=== PATIENT | female | born 1965 | race Caucasian/White ===

== ENCOUNTER 2021-05-28 22:13 | Emergency (ER) | payer MEDICARE, MEDICAID ==
--- NOTE | 2021-05-28 23:24 | EDM.PDOC ---
ED HPI GENERAL MEDICAL PROBLEM - General Chief Complaint: General Stated Complaint: ripped toe nail, left foot Time Seen by Provider: 05/28/21 22:25 Source of Information: Reports: Patient History Limitations: Reports: No Limitations - History of Present Illness INITIAL COMMENTS - FREE TEXT/NARRATIVE: Pt. presents to ER with complaints of bleeding from an avulsed toe nail. Pt. states that she caught the nail from her 2nd digit of L foot on her sock this AM at 10:30. She states that the toenail was avulsed, and actively bled all day. She is on eliquis and plavix. She states that they were trying to control the bleeding with gauze but applied a bandaid to the toe at about 9 PM which seemed to control the bleeding. They were concerned of the length of time the bleeding went on for and called 911. EMS stated that the bleeding was controlled during transport. Onset: Today Onset Date: 05/28/21 Location: Reports: Lower Extremity, Left - Related Data Allergies Allergy/AdvReac Type Severity Reaction Status Date / Time amoxicillin Allergy Unknown Other Verified 05/28/21 22:57 atorvastatin Allergy Unknown Other Verified 05/28/21 22:57 cephalexin [From Keflex] Allergy Unknown Other Verified 05/28/21 22:58 clindamycin Allergy Unknown Other Verified 05/28/21 22:57 duloxetine Allergy Unknown Other Verified 05/28/21 22:57 ibuprofen Allergy Unknown Other Verified 05/28/21 22:57 iodine Allergy Unknown Other Verified 05/28/21 22:57 metformin Allergy Unknown Other Verified 05/28/21 22:57 azithromycin [From Zithromax] Allergy Hives Verified 05/28/21 22:57 Sulfa (Sulfonamide Allergy Shortness Verified 05/28/21 22:57 Antibiotics) of Breath Home Meds: Home Meds Gabapentin [Neurontin] 800 mg PO TID 12/27/13 [History] Insulin Aspart [NovoLOG] units SQ BID 12/27/13 [History] Insulin Glarg,Human.Rec.Analog [LantUS] 30 unit SUBCUT DAILY 12/27/13 [History] Lisinopril 20 mg PO DAILY 12/27/13 [History] Ondansetron [Zofran ODT] 4 mg PO ONCALL PRN 12/27/13 [History] Simvastatin [Zocor] 10 mg PO BEDTIME 12/27/13 [History] Albuterol Sulfate [Albuterol Sulfate HFA] 8.5 gm IH TID #1 hfa.aer.ad 02/01/14 [Rx] ED ROS GENERAL - Review of Systems Review Of Systems: Comprehensive ROS is negative, except as noted in HPI. ED EXAM, GENERAL - Physical Exam Exam: See Below Exam Limited By: No Limitations General Appearance: Alert, WD/WN, No Apparent Distress Extremities: Normal Inspection, Normal Range of Motion, Non-Tender, No Pedal Edema, Normal Capillary Refill, Other (Avulsed nail 2nd digit L foot. Bleeding controlled with bandaid. Scant amount of oozing of blood noted from area of cuticle. Pt. noted to have a ulcer to lateral aspect of the L ankle. No erythema, edema or discharge noted.) ED GENERAL MEDICAL PROCEDURES - Additional/Other Procedure(s) Other (Free Text) Procedure(s): Small area of exposed oozing nail matrix was cauterized with silver nitrate. Pt. tolerated this well. New bandaid was applied to digit. Wound on lateral aspect of the ankle was inspected and redressed with large bandaid. No active infectious process noted from either area. Course - Vital Signs Last Recorded V/S: Last Vital Signs Temp 36.6 C 05/28/21 22:16 Pulse 66 05/28/21 22:16 Resp 18 05/28/21 22:16 BP 137/62 05/28/21 22:16 Pulse Ox 100 05/28/21 22:16 Departure - Departure Time of Disposition: 11:30 Disposition: DC/Tfer to [facility] Clinical Impression: Nail avulsion of toe - Discharge Information Instructions: Nail Avulsion Referrals: Micaela Mensah MD [Primary Care Provider] - Forms: ED Department Discharge Additional Instructions: Silver nitrate was applied to the bleeding area. Change bandaid once daily. Return to ER/follow-up in clinic if you notice any redness, swelling, or discharge. Sepsis Event Note (ED) - Evaluation Sepsis Screening Result: No Definite Risk - Focused Exam Vital Signs: Vital Signs Temp Pulse Resp BP Pulse Ox 05/28/21 22:16 36.6 C 66 18 137/62 100 - Problem List Review Problem List Initiated/Reviewed/Updated: Yes - Assessment/Plan Plan: Home to rest. Change dressing on both lesions daily. If the patient continues to have bleeding from the toe, they can coban the 1st and 2nd digit for a pressure dressing. Return if they notice redness, swelling, or discharge from the area.
== END 2021-05-28 23:50 ==
LOC: LL.ED 22:13
DX: S91.215A Laceration without foreign body of left lesser toe(s) with damage to nail, initial encounter (principal); Z88.0 Allergy status to penicillin; Z88.1 Allergy status to other antibiotic agents; Z88.8 Allergy status to other drugs, medicaments and biological substances; Z79.4 Long term (current) use of insulin; Z79.899 Other long term (current) drug therapy; Z79.02 Long term (current) use of antithrombotics/antiplatelets; Z79.01 Long term (current) use of anticoagulants; W23.0XXA Caught, crushed, jammed, or pinched between moving objects, initial encounter
CPT/HCPCS: 12001; 99283-25

== ENCOUNTER 2021-06-30 12:51 | Inpatient (IN) | payer MEDICARE, MEDICAID ==
[2021-06-30] MEDS ORDERED: Sodium Chloride 0.9% 10 ML Syringe FLUSH PRN (12:52)
[2021-06-30] MEDS: Sodium Chloride 0.9% 1,000 ML IV SCH ×2 (13:00→15:00)
--- NOTE | 2021-06-30 13:08 | EDM.PDOC ---
ED HPI GENERAL MEDICAL PROBLEM - General Chief Complaint: General Stated Complaint: unresponsive, elevated blood sugars Time Seen by Provider: 06/30/21 12:52 Source of Information: Reports: Patient, EMS, EMS Notes Reviewed, Halfway Records, Old Records History Limitations: Reports: Other (poor historian) - History of Present Illness INITIAL COMMENTS - FREE TEXT/NARRATIVE: Patient presents to the ER via EMS for altered mental status and high blood sugars. Patient was just discharged from [place] to [facility] for assisted cares yesterday. Apparently she is unable to care for herself and has a chronic elevated blood sugar problem. She did get insulin today, but meter readings were " high". She admitted to staff that she smoked marijuana laced with cocaine on 06/28. She is not on oxygen but has CHF, COPD. patient is alert and answering questions to voice stimulation. Moving all extremities. Has sores on her right stump and left foot chronically. 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 Denies any pain - Related Data Allergies Allergy/AdvReac Type Severity Reaction Status Date / Time amoxicillin Allergy Unknown Other Verified 05/28/21 22:57 atorvastatin Allergy Unknown Other Verified 05/28/21 22:57 cephalexin [From Keflex] Allergy Unknown Other Verified 05/28/21 22:58 clindamycin Allergy Unknown Other Verified 05/28/21 22:57 duloxetine Allergy Unknown Other Verified 05/28/21 22:57 ibuprofen Allergy Unknown Other Verified 05/28/21 22:57 iodine Allergy Unknown Other Verified 05/28/21 22:57 metformin Allergy Unknown Other Verified 05/28/21 22:57 azithromycin [From Zithromax] Allergy Hives Verified 05/28/21 22:57 Sulfa (Sulfonamide Allergy Shortness Verified 05/28/21 22:57 Antibiotics) of Breath Home Meds: Home Meds Gabapentin [Neurontin] 800 mg PO TID 12/27/13 [History] Insulin Aspart [NovoLOG] units SQ BID 12/27/13 [History] Insulin Glarg,Human.Rec.Analog [LantUS] 30 unit SUBCUT DAILY 12/27/13 [History] Lisinopril 20 mg PO DAILY 12/27/13 [History] Ondansetron [Zofran ODT] 4 mg PO ONCALL PRN 12/27/13 [History] Simvastatin [Zocor] 10 mg PO BEDTIME 12/27/13 [History] Albuterol Sulfate [Albuterol Sulfate HFA] 8.5 gm IH TID #1 hfa.aer.ad 02/01/14 [Rx] Past Medical History HEENT History: Reports: Allergic Rhinitis, Glaucoma, Other (See Below) Other HEENT History: macular edema R eye Cardiovascular History: Reports: Heart Failure, High Cholesterol, Hypertension, PVD Respiratory History: Reports: COPD Gastrointestinal History: Reports: GERD Genitourinary History: Reports: Chronic Renal Insuffiency, Other (See Below) Other Genitourinary History: stage 3 Musculoskeletal History: Reports: Other (See Below) Psychiatric History: Reports: Anxiety, Depression Endocrine/Metabolic History: Reports: Diabetes, Type II, Hypothyroidism - Past Surgical History Musculoskeletal Surgical History: Reports: Amputation Other Musculoskeletal Surgeries/Procedures:: R leg below knee amputation Social & Family History - Tobacco Use Tobacco Use Status *Q: Current Every Day Tobacco User - Recreational Drug Use Recreational Drug Use: Yes Drug Use in Last 12 Months: Yes Recreational Drug Type: Reports: Cocaine, Marijuana/Hashish ED ROS GENERAL - Review of Systems Review Of Systems: See Below Constitutional: Reports: Weakness, Fatigue HEENT: Reports: No Symptoms. Denies: Dental Pain, Sinus Problem, Throat Pain Respiratory: Reports: Shortness of Breath (chronically) Cardiovascular: Reports: Dyspnea on Exertion (chronically with minimal activity, non ambulatory), Edema (left leg chronically) GI/Abdominal: Reports: No Symptoms Skin: Reports: Wound (chronically on right stump and left foot) Neurological: Reports: Paresthesia, Pre-Existing Deficit (diabetic neuropathy) ED EXAM, GENERAL - Physical Exam Exam: See Below Exam Limited By: Other (cooperative but somnolent, responds and opens eyes to commands, answers questions) General Appearance: Other (somnolent but arousable to voice) Eye Exam: Right Eye: PERRL (note left is blind), Bilateral Eye: Normal Inspection Nose: Normal Inspection Throat/Mouth: Normal Inspection, Normal Lips, Normal Voice Head: Atraumatic Neck: Normal Inspection, Supple Respiratory/Chest: Normal Breath Sounds, Decreased Breath Sounds (bases), Crackles Cardiovascular: Normal Peripheral Pulses, Regular Rate, Rhythm GI/Abdominal: Normal Bowel Sounds, Soft Extremities: Other (rightleg stump with dressing wound at end. left leg with dermis stasis changes, brawny edema, wound dressed. ) Psychiatric: Depressed Mood #1 Interpretation EKG Date: 06/30/21 Time: 13:05 Rhythm: NSR Rate (Beats/Min): 59 [place]: Normal ST-T: Other (non specific changes, no STEMI) QT: Prolonged Course - Vital Signs Last Recorded V/S: Last Vital Signs Temp 36.0 C L 06/30/21 12:51 Pulse 61 06/30/21 12:51 Resp 16 06/30/21 12:51 BP 113/51 L 06/30/21 12:51 Pulse Ox 92 L 06/30/21 12:51 - Orders/Labs/Meds Orders: Active Orders 24 hr Category Date Time Status Admission Status [Patient Status] [ADT] Routine ADT 06/30/21 13:53 Active Blood Glucose Check, Bedside [RC] WITHMEALSANDBED Care 06/30/21 13:25 Active EKG Documentation Completion [RC] ASDIRECTED Care 06/30/21 12:54 Active Oxygen Therapy [RC] ASDIRECTED Care 06/30/21 13:27 Active Peripheral IV Care [RC] . DIRECTED Care 06/30/21 12:53 Active Chest 1V Frontal [CR] Stat Exams 06/30/21 12:56 Taken CULTURE URINE [RM] Stat Lab 06/30/21 14:20 Received Dextrose 50% in Water Med 06/30/21 13:19 Active 50 ml IVPUSH ASDIRECTED PRN Glucagon,Human Recombinant [GlucaGen] Med 06/30/21 13:19 Active 1 mg IM ASDIRECTED PRN Insulin Regular, Human [HumuLIN R] 100 unit Med 06/30/21 14:00 Active Sodium Chloride 0.9% [Normal Saline] 99 ml IV TITRATE Sodium Chloride 0.9% [Normal Saline] 1,000 ml Med 06/30/21 13:00 Active IV ASDIRECTED Sodium Chloride 0.9% [Normal Saline] 1,000 ml Med 06/30/21 14:15 Active IV ASDIRECTED Sodium Chloride 0.9% [Normal Saline] 1,000 ml Med 06/30/21 15:00 Ordered IV ASDIRECTED Sodium Chloride 0.9% [Saline Flush] Med 06/30/21 12:52 Active 10 ml FLUSH ASDIRECTED PRN cefTRIAXone [Rocephin] Med 06/30/21 15:00 Ordered 1 gm IVPUSH Q24H Peripheral IV Insertion Adult [OM.PC] Routine Oth 06/30/21 12:52 Ordered Medication Orders Ceftriaxone Sodium (Ceftriaxone 2 Gm Vial) 1 gm IVPUSH Q24H DERICK Dextrose/Water (50% Dextrose In Water 50 Ml Syringe) 50 ml IVPUSH ASDIRECTED PRN PRN Reason: Hypoglycemia Glucagon (Glucagon,Human Recombinant 1 Mg Vial) 1 mg IM ASDIRECTED PRN PRN Reason: Hypoglycemia Sodium Chloride (Normal Saline) 1,000 mls @ 999 mls/hr IV ASDIRECTED DERICK Last Admin: 06/30/21 13:00 Dose: 999 mls/hr Documented by: ELISABETH Insulin Human Regular 100 unit (/ Sodium Chloride) 100 mls @ 10.18 mls/hr IV TITRATE DERICK; Protocol Last Admin: 06/30/21 14:31 Dose: 0.1 units/kg/hr, 10.18 mls/hr Documented by: ELISABETH Cosigned by: COXTAM Sodium Chloride (Normal Saline) 1,000 mls @ 999 mls/hr IV ASDIRECTED DERICK Sodium Chloride (Normal Saline) 1,000 mls @ 100 mls/hr IV ASDIRECTED DERICK Sodium Chloride (Sodium Chloride 0.9% 10 Ml Syringe) 10 ml FLUSH ASDIRECTED PRN PRN Reason: Keep Vein Open Labs: Laboratory Tests 06/30/21 06/30/21 06/30/21 Range/Units 12:55 12:55 12:55 WBC 10.7 H (4.0-10.2) K/uL RBC 4.00 (3.77-5.09) M/uL Hgb 12.4 (11.7-15.5) g/dL Hct 38.9 (34.0-46.0) % MCV 97.3 (84.0-98.0) fL MCH 31.0 (28.2-33.3) pg MCHC 31.9 (31.7-36.0) g/dL RDW 13.8 (11.2-14.1) % Plt Count 209 (150-350) K/uL Neut % (Auto) 79.3 (45.0-80.0) % Lymph % (Auto) 10.0 (10.0-50.0) % [place] % (Auto) 9.6 (2.0-14.0) % Eos % (Auto) 0.8 (0.0-5.0) % Baso % (Auto) 0.3 (0.0-2.0) % Neut # (Auto) 8.46 H (1.40-7.00) K/uL Lymph # (Auto) 1.07 (0.50-3.50) K/uL [place] # (Auto) 1.02 H (0.00-1.00) K/uL Eos # (Auto) 0.09 (0.00-0.50) K/uL Baso # (Auto) 0.03 (0.00-0.20) K/uL D-Dimer, Quantitative (0-400) ng/mL ABG pH (7.35-7.45) ABG pCO2 (35-45) mmHG ABG pO2 (80-105) mmHG ABG HCO3 (22-26) mmol/L ABG Total CO2 (23-27) mmol/L ABG O2 Saturation (95-98) % ABG Base Excess (-2-3) mmol/L O2 Delivery Device Oxygen Flow Rate L/min Sodium 118 L* (136-145) mmol/L Potassium 5.1 (3.5-5.1) mmol/L Chloride 79 L* (98-107) mmol/L Carbon Dioxide 30.9 (21.0-32.0) mmol/L Anion Gap 13.2 (7-15) meq/L BUN 63 H (7-18) mg/dL Creatinine 2.55 H (0.51-1.17) mg/dL Est Cr Clr Drug Dosing TNP Estimated GFR (MDRD) 20 mL/min Glucose 1046 H* (70-99) mg/dL Lactic Acid (0.4-2.0) mmol/L Calcium 8.9 (8.5-10.1) mg/dL Magnesium 3.0 H (1.8-2.4) mg/dL Total Bilirubin 0.5 (0.2-1.0) mg/dL AST 11 L (15-37) U/L ALT 13 (12-78) U/L Alkaline Phosphatase 231 H (46-116) IU/L Ammonia (11-32) umol/L Troponin I High Sens 14 (<=51) ng/L NT-Pro-B Natriuret Pep 5368 H (0-125) pg/mL Total Protein 7.6 (6.4-8.2) g/dL Albumin 3.1 L (3.4-5.0) g/dL Specimen Type Urine Color Urine Appearance Urine pH (5.0-9.0) Ur Specific [place] (1.005-1.030) Urine Protein (NEGATIVE) mg/dL Urine Glucose (UA) (NEGATIVE) mg/dL Urine Ketones (NEGATIVE) mg/dL Urine Occult Blood (NEGATIVE) Urine Nitrite (NEGATIVE) Urine Bilirubin (NEGATIVE) Urine Urobilinogen (0.2-1.0) E.U./dL Ur Leukocyte Esterase (NEGATIVE) Urine RBC /HPF Urine WBC /HPF Ur Epithelial Cells /LPF Urine Bacteria (NONE TO FEW) /HPF Urine Mucus (NEGATIVE) /LPF Urine Yeast (NEGATIVE) /HPF Urine Opiates Screen (NEGATIVE) Ur Buprenorphine Scrn (NEGATIVE) Ur Oxycodone Screen (NEGATIVE) Ur EDDP (Meth Metab) (NEGATIVE) Ur Barbiturates Screen (NEGATIVE) Ur Tricyclics Screen (NEGATIVE) Ur Amphetamine Screen (NEGATIVE) U Methamphetamines Scrn (NEGATIVE) Urine MDMA Screen (NEGATIVE) U Benzodiazepines Scrn (NEGATIVE) U Cocaine Metab Screen (NEGATIVE) U Marijuana (THC) Screen (NEGATIVE) Ketones Negative 06/30/21 06/30/21 06/30/21 Range/Units 12:55 12:55 12:55 WBC (4.0-10.2) K/uL RBC (3.77-5.09) M/uL Hgb (11.7-15.5) g/dL Hct (34.0-46.0) % MCV (84.0-98.0) fL MCH (28.2-33.3) pg MCHC (31.7-36.0) g/dL RDW (11.2-14.1) % Plt Count (150-350) K/uL Neut % (Auto) (45.0-80.0) % Lymph % (Auto) (10.0-50.0) % [place] % (Auto) (2.0-14.0) % Eos % (Auto) (0.0-5.0) % Baso % (Auto) (0.0-2.0) % Neut # (Auto) (1.40-7.00) K/uL Lymph # (Auto) (0.50-3.50) K/uL [place] # (Auto) (0.00-1.00) K/uL Eos # (Auto) (0.00-0.50) K/uL Baso # (Auto) (0.00-0.20) K/uL D-Dimer, Quantitative 387 (0-400) ng/mL ABG pH (7.35-7.45) ABG pCO2 (35-45) mmHG ABG pO2 (80-105) mmHG ABG HCO3 (22-26) mmol/L ABG Total CO2 (23-27) mmol/L ABG O2 Saturation (95-98) % ABG Base Excess (-2-3) mmol/L O2 Delivery Device Oxygen Flow Rate L/min Sodium (136-145) mmol/L Potassium (3.5-5.1) mmol/L Chloride (98-107) mmol/L Carbon Dioxide (21.0-32.0) mmol/L Anion Gap (7-15) meq/L BUN (7-18) mg/dL Creatinine (0.51-1.17) mg/dL Est Cr Clr Drug Dosing Estimated GFR (MDRD) mL/min Glucose (70-99) mg/dL Lactic Acid 2.6 H (0.4-2.0) mmol/L Calcium (8.5-10.1) mg/dL Magnesium (1.8-2.4) mg/dL Total Bilirubin (0.2-1.0) mg/dL AST (15-37) U/L ALT (12-78) U/L Alkaline Phosphatase (46-116) IU/L Ammonia 13 (11-32) umol/L Troponin I High Sens (<=51) ng/L NT-Pro-B Natriuret Pep (0-125) pg/mL Total Protein (6.4-8.2) g/dL Albumin (3.4-5.0) g/dL Specimen Type Urine Color Urine Appearance Urine pH (5.0-9.0) Ur Specific [place] (1.005-1.030) Urine Protein (NEGATIVE) mg/dL Urine Glucose (UA) (NEGATIVE) mg/dL Urine Ketones (NEGATIVE) mg/dL Urine Occult Blood (NEGATIVE) Urine Nitrite (NEGATIVE) Urine Bilirubin (NEGATIVE) Urine Urobilinogen (0.2-1.0) E.U./dL Ur Leukocyte Esterase (NEGATIVE) Urine RBC /HPF Urine WBC /HPF Ur Epithelial Cells /LPF Urine Bacteria (NONE TO FEW) /HPF Urine Mucus (NEGATIVE) /LPF Urine Yeast (NEGATIVE) /HPF Urine Opiates Screen (NEGATIVE) Ur Buprenorphine Scrn (NEGATIVE) Ur Oxycodone Screen (NEGATIVE) Ur EDDP (Meth Metab) (NEGATIVE) Ur Barbiturates Screen (NEGATIVE) Ur Tricyclics Screen (NEGATIVE) Ur Amphetamine Screen (NEGATIVE) U Methamphetamines Scrn (NEGATIVE) Urine MDMA Screen (NEGATIVE) U Benzodiazepines Scrn (NEGATIVE) U Cocaine Metab Screen (NEGATIVE) U Marijuana (THC) Screen (NEGATIVE) Ketones 06/30/21 06/30/21 06/30/21 Range/Units 13:19 14:20 14:20 WBC (4.0-10.2) K/uL RBC (3.77-5.09) M/uL Hgb (11.7-15.5) g/dL Hct (34.0-46.0) % MCV (84.0-98.0) fL MCH (28.2-33.3) pg MCHC (31.7-36.0) g/dL RDW (11.2-14.1) % Plt Count (150-350) K/uL Neut % (Auto) (45.0-80.0) % Lymph % (Auto) (10.0-50.0) % [place] % (Auto) (2.0-14.0) % Eos % (Auto) (0.0-5.0) % Baso % (Auto) (0.0-2.0) % Neut # (Auto) (1.40-7.00) K/uL Lymph # (Auto) (0.50-3.50) K/uL [place] # (Auto) (0.00-1.00) K/uL Eos # (Auto) (0.00-0.50) K/uL Baso # (Auto) (0.00-0.20) K/uL D-Dimer, Quantitative (0-400) ng/mL ABG pH 7.40 (7.35-7.45) ABG pCO2 49 H (35-45) mmHG ABG pO2 68 L* (80-105) mmHG ABG HCO3 30.4 H (22-26) mmol/L ABG Total CO2 31 H (23-27) mmol/L ABG O2 Saturation 93 L (95-98) % ABG Base Excess 5 H (-2-3) mmol/L O2 Delivery Device Room air Oxygen Flow Rate 2 L/min Sodium (136-145) mmol/L Potassium (3.5-5.1) mmol/L Chloride (98-107) mmol/L Carbon Dioxide (21.0-32.0) mmol/L Anion Gap (7-15) meq/L BUN (7-18) mg/dL Creatinine (0.51-1.17) mg/dL Est Cr Clr Drug Dosing Estimated GFR (MDRD) mL/min Glucose (70-99) mg/dL Lactic Acid (0.4-2.0) mmol/L Calcium (8.5-10.1) mg/dL Magnesium (1.8-2.4) mg/dL Total Bilirubin (0.2-1.0) mg/dL AST (15-37) U/L ALT (12-78) U/L Alkaline Phosphatase (46-116) IU/L Ammonia (11-32) umol/L Troponin I High Sens (<=51) ng/L NT-Pro-B Natriuret Pep (0-125) pg/mL Total Protein (6.4-8.2) g/dL Albumin (3.4-5.0) g/dL Specimen Type [place] Urine Color Yellow Urine Appearance Cloudy Urine pH 5.5 (5.0-9.0) Ur Specific [place] 1.010 (1.005-1.030) Urine Protein Negative (NEGATIVE) mg/dL Urine Glucose (UA) 500 H (NEGATIVE) mg/dL Urine Ketones Negative (NEGATIVE) mg/dL Urine Occult Blood Moderate H (NEGATIVE) Urine Nitrite Negative (NEGATIVE) Urine Bilirubin Negative (NEGATIVE) Urine Urobilinogen 0.2 (0.2-1.0) E.U./dL Ur Leukocyte Esterase Large H (NEGATIVE) Urine RBC 0-5 /HPF Urine WBC >100 H /HPF Ur Epithelial Cells Moderate H /LPF Urine Bacteria Few (NONE TO FEW) /HPF Urine Mucus Few H (NEGATIVE) /LPF Urine Yeast Many H (NEGATIVE) /HPF Urine Opiates Screen Negative (NEGATIVE) Ur Buprenorphine Scrn Negative (NEGATIVE) Ur Oxycodone Screen Negative (NEGATIVE) Ur EDDP (Meth Metab) Negative (NEGATIVE) Ur Barbiturates Screen Negative (NEGATIVE) Ur Tricyclics Screen Negative (NEGATIVE) Ur Amphetamine Screen Negative (NEGATIVE) U Methamphetamines Scrn Negative (NEGATIVE) Urine MDMA Screen Negative (NEGATIVE) U Benzodiazepines Scrn Negative (NEGATIVE) U Cocaine Metab Screen Negative (NEGATIVE) U Marijuana (THC) Screen Negative (NEGATIVE) Ketones Meds: Medications Generic Name Dose Route Start Last Admin Trade Name Freq PRN Reason Stop Dose Admin Ceftriaxone Sodium 1 gm 06/30/21 15:00 Ceftriaxone 2 Gm Vial IVPUSH Q24H DERICK Dextrose/Water 50 ml 06/30/21 13:19 50% Dextrose In Water 50 Ml Syringe IVPUSH ASDIRECTED PRN Hypoglycemia Glucagon 1 mg 06/30/21 13:19 Glucagon,Human Recombinant 1 Mg Vial IM ASDIRECTED PRN Hypoglycemia Sodium Chloride 1,000 mls @ 999 mls/hr 06/30/21 13:00 06/30/21 13:00 Normal Saline IV 999 mls/hr ASDIRECTED DERICK Administration Insulin Human Regular 100 unit 100 mls @ 10.18 mls/hr 06/30/21 14:00 06/30/21 14:31 / Sodium Chloride IV 0.1 units/kg/hr TITRATE DERICK 10.18 mls/hr Administration Protocol 0.1 UNITS/KG/HR Sodium Chloride 1,000 mls @ 999 mls/hr 06/30/21 14:15 Normal Saline IV ASDIRECTED DERICK Sodium Chloride 1,000 mls @ 100 mls/hr 06/30/21 15:00 Normal Saline IV ASDIRECTED DERICK Sodium Chloride 10 ml 06/30/21 12:52 Sodium Chloride 0.9% 10 Ml Syringe FLUSH ASDIRECTED PRN Keep Vein Open Discontinued Medications Generic Name Dose Route Start Last Admin Trade Name Freq PRN Reason Stop Dose Admin Insulin Human Regular 10 unit 06/30/21 13:19 06/30/21 13:41 Insulin Regular, Human 100 Units/Ml 3 Ml Vial IV 06/30/21 13:20 10 units ONETIME ONE Administration Naloxone HCl 2 mg 06/30/21 13:30 06/30/21 13:35 Naloxone 2 Mg/2 Ml Syringe IVPUSH 06/30/21 13:31 2 mg ONETIME ONE Administration - Radiology Interpretation Free Text/Narrative:: one view chest x-ray without acute findings, preliminary read. - Re-Assessments/Exams Free Text/Narrative Re-Assessment/Exam: 06/30/[address] an IV, get abg. give fluids until potassium known. 13:35 potassium normal, sodium low, awaiting glucose reading. Will give 10 units of insulin. Patient known for drug use, sleeping, appears to have sleep apnea. oxygen via mouth at 5 lpm. ABG with low Po2. will give 2 mg of Narcan Normal ph. 06/30/21 14:05 Patient was much more responsive after the narcan. has been taking oxycodone. Has significant hyperglycemia, normal Ph, normal corrected sodium of 133. normal mag and potassium. insulin drip ordered. Does have significant heart failure with elevated BNP but can maintain room air sats of 100 % when awake. desaturates when asleep. admission for monitoring of electrolytes, decreasing glucose and monitoring of her respiratory status. 06/30/21 14:17 reviewed [place] Chart Admitted 06/20/2021 for [facility], blood glucose 900, creatinine 2.46. Discharged to [facility] on 06/22. creatinine 1.5 an glucose 230. Treated with rocpehin for uti, was E coli positive with resistance to ampicillin. cipro and levoquin. Started on 10 days of vancomycin 125 mg Po bid due to history of c diff. should have two days left of this. Admitted to [facility] [place] yesterday. History of noncompliance with insulin and drug abuse. 06/30/21 14:58 patient does have a UTI, poor hygiene and uncontrolled glucose contribute to this. Patient has taken rocephin in the past ( mckayla) and tolerated. Will give one gram rocephin IV. Departure - Departure Time of Disposition: 13:52 Disposition: Admitted As Inpatient 68 Clinical Impression: Hyperglycemia, Hyponatremia, Hypoxia, Hyperosmolar hyperglycemic state (HHS), UTI, Urinary tract infectious disease, Noncompliance - Discharge Information Referrals: PCP,Unknown [Ordering Only Provider] - Forms: ED Department Discharge Additional Instructions: use ER note as admission H & P Sepsis Event Note (ED) - Focused Exam Vital Signs: Vital Signs Temp Pulse Resp BP Pulse Ox 06/30/21 12:51 36.0 C L 61 16 113/51 L 92 L - My Orders Last 24 Hours: My Active Orders 06/30/21 12:52 Sodium Chloride 0.9% [Saline Flush] 10 ml FLUSH ASDIRECTED PRN Peripheral IV Insertion Adult [OM.PC] Routine 06/30/21 12:53 Peripheral IV Care [RC] . DIRECTED 06/30/21 12:54 EKG Documentation Completion [RC] ASDIRECTED 06/30/21 12:56 Chest 1V Frontal [CR] Stat 06/30/21 13:00 Sodium Chloride 0.9% [Normal Saline] 1,000 ml IV ASDIRECTED 06/30/21 13:19 Dextrose 50% in Water 50 ml IVPUSH ASDIRECTED PRN Glucagon,Human Recombinant [GlucaGen] 1 mg IM ASDIRECTED PRN 06/30/21 13:25 Blood Glucose Check, Bedside [RC] WITHMEALSANDBED 06/30/21 13:27 Oxygen Therapy [RC] ASDIRECTED 06/30/21 13:53 Admission Status [Patient Status] [ADT] Routine 06/30/21 14:00 Insulin Regular, Human [HumuLIN R] 100 unit Sodium Chloride 0.9% [Normal Saline] 99 ml IV TITRATE 06/30/21 14:15 Sodium Chloride 0.9% [Normal Saline] 1,000 ml IV ASDIRECTED 06/30/21 14:20 CULTURE URINE [RM] Stat 06/30/21 15:00 Sodium Chloride 0.9% [Normal Saline] 1,000 ml IV ASDIRECTED cefTRIAXone [Rocephin] 1 gm IVPUSH Q24H - Assessment/Plan Last 24 Hours: My Active Orders 06/30/21 12:52 Sodium Chloride 0.9% [Saline Flush] 10 ml FLUSH ASDIRECTED PRN Peripheral IV Insertion Adult [OM.PC] Routine 06/30/21 12:53 Peripheral IV Care [RC] . DIRECTED 06/30/21 12:54 EKG Documentation Completion [RC] ASDIRECTED 06/30/21 12:56 Chest 1V Frontal [CR] Stat 06/30/21 13:00 Sodium Chloride 0.9% [Normal Saline] 1,000 ml IV ASDIRECTED 06/30/21 13:19 Dextrose 50% in Water 50 ml IVPUSH ASDIRECTED PRN Glucagon,Human Recombinant [GlucaGen] 1 mg IM ASDIRECTED PRN 06/30/21 13:25 Blood Glucose Check, Bedside [RC] WITHMEALSANDBED 06/30/21 13:27 Oxygen Therapy [RC] ASDIRECTED 06/30/21 13:53 Admission Status [Patient Status] [ADT] Routine 06/30/21 14:00 Insulin Regular, Human [HumuLIN R] 100 unit Sodium Chloride 0.9% [Normal Saline] 99 ml IV TITRATE 06/30/21 14:15 Sodium Chloride 0.9% [Normal Saline] 1,000 ml IV ASDIRECTED 06/30/21 14:20 CULTURE URINE [RM] Stat 06/30/21 15:00 Sodium Chloride 0.9% [Normal Saline] 1,000 ml IV ASDIRECTED cefTRIAXone [Rocephin] 1 gm IVPUSH Q24H
[2021-06-30] MEDS ORDERED: Insulin Regular, Human 100 Units/ML 3 ML Vial IV ONE (13:19)
[2021-06-30] MEDS ORDERED: 50% Dextrose in Water 50 ML Syringe IVPUSH PRN (13:19)
[2021-06-30] MEDS ORDERED: Glucagon,Human Recombinant 1 MG Vial IM PRN (13:19)
[2021-06-30 13:21] LABS: O2 DELIVERY DEVICE ROOM AIR; PCO2 ARTERIAL 49 mmHG (35-45)
[2021-06-30 13:22] LABS: BASE EXCESS ARTERIAL 5 mmol/L (-2-3); BICARBONATE,ARTERIAL 30.4 mmol/L (22-26); O2 SATURATION ARTERIAL 93 % (95-98); PO2 ARTERIAL 68 mmHG (80-105)
[2021-06-30 13:26] LABS: O2 FLOW RATE 2 L/min
[2021-06-30] MEDS ORDERED: Naloxone 2 MG/2 ML Syringe IVPUSH ONE (13:30)
[2021-06-30 13:41] LABS: ANION GAP 13.2 meq/L (7-15); CHLORIDE,CL 79 mmol/L (98-107); SODIUM,NA 118 mmol/L (136-145)
[2021-06-30] MEDS ORDERED: Sodium Chloride 0.9% 1,000 ML IV SCH ×3 (14:15→15:15)
[2021-06-30 14:40] LABS: BARBITURATE SCREEN,URINE NEGATIVE (NEGATIVE); BENZODIAZEPINES SCREEN,URINE NEGATIVE (NEGATIVE); EDDP,URINE SCREEN NEGATIVE (NEGATIVE); TCA SCREEN,URINE NEGATIVE (NEGATIVE); THC SCREEN,URINE 50 NG/ML NEGATIVE (NEGATIVE)
[2021-06-30 14:42] LABS: BUPRENORPHINE SCREEN,URINE NEGATIVE (NEGATIVE)
[2021-06-30] MEDS ORDERED: Ondansetron 4 MG/2 ML SDV IVPUSH PRN (15:00)
[2021-06-30] MEDS ORDERED: Acetaminophen/HYDROcodone 325-5 MG Tab PO PRN (15:00)
[2021-06-30] MEDS ORDERED: cefTRIAXone 2 GM Vial IVPUSH SCH (15:00)
[2021-06-30] MEDS ORDERED: Albuterol 0.083% 2.5 MG/3 ML Neb Soln NEB PRN (15:00)
[2021-06-30] MEDS ORDERED: Insulin Lispro 100 Units/ML 3 ML Vial SUBCUT SCH (15:00)
[2021-06-30] MEDS ORDERED: Bisacodyl 5 MG Tab PO PRN (15:00)
[2021-06-30] MEDS ORDERED: Acetaminophen 325 MG Tab PO PRN (15:00)
[2021-06-30] MEDS ORDERED: Ondansetron 4 MG Tab.DIS PO PRN (15:00)
[2021-06-30 17:35] LABS: ANION GAP 12.5 meq/L (7-15); CHLORIDE,CL 92 mmol/L (98-107); SODIUM,NA 131 mmol/L (136-145)
[2021-06-30] MEDS: Gabapentin 400 MG Cap PO SCH (19:55)
[2021-06-30] MEDS: atorvaSTATin 40 MG Tab PO SCH (19:56)
[2021-06-30] MEDS: Omeprazole 20 MG Cap.CR PO SCH (19:56)
[2021-06-30] MEDS: ClonazePAM 0.5 MG Tab PO SCH (19:56)
[2021-06-30] MEDS: QUEtiapine 25 MG Tab PO SCH (19:57)
[2021-06-30] MEDS: Insulin Lispro 100 Units/ML 3 ML Vial SUBCUT SCH (19:58)
[2021-06-30] MEDS: Carvedilol 6.25 MG Tab PO SCH (20:08)
[2021-06-30] MEDS: Timolol Maleate 0.5% Ophth Soln 5 ML Bottle EYELF SCH (20:09)
[2021-06-30] MEDS: Latanoprost 0.005% Ophth Soln 2.5 ML Bottle EYELF SCH (20:12)
[2021-07-01 05:45] LABS: ANION GAP 11.4 meq/L (7-15)
[2021-07-01] MEDS: Spironolactone 25 MG Tab PO SCH (07:35)
[2021-07-01] MEDS: QUEtiapine 25 MG Tab PO SCH ×2 (07:35→17:03)
[2021-07-01] MEDS: Bumetanide 1 MG Tab PO SCH ×2 (07:36→11:15)
[2021-07-01] MEDS: amLODIPine 5 MG Tab PO SCH (07:37)
[2021-07-01] MEDS: Isosorbide Mononitrate 30 MG Tab.ER PO SCH (07:37)
[2021-07-01] MEDS: Gabapentin 400 MG Cap PO SCH ×3 (07:38→17:02)
[2021-07-01] MEDS: Citalopram 20 MG Tab PO SCH (07:38)
[2021-07-01] MEDS: Clopidogrel 75 MG Tab PO SCH (07:39)
[2021-07-01] MEDS: Carvedilol 6.25 MG Tab PO SCH ×2 (07:39→17:02)
[2021-07-01] MEDS: Apixaban 5 MG Tab PO SCH (07:39)
[2021-07-01] MEDS: Levothyroxine 25 MCG Tab PO SCH (07:39)
[2021-07-01] MEDS: Timolol Maleate 0.5% Ophth Soln 5 ML Bottle EYELF SCH ×2 (07:50→17:02)
[2021-07-01] MEDS: Insulin Lispro 100 Units/ML 3 ML Vial SUBCUT SCH ×5 (07:55→17:05)
[2021-07-01] MEDS ORDERED: Furosemide 40 MG Tab PO SCH (08:00)
[2021-07-01] MEDS ORDERED: Glucagon,Human Recombinant 1 MG Vial IM PRN ×2 (08:21→08:37)
[2021-07-01] MEDS ORDERED: 50% Dextrose in Water 50 ML Syringe IVPUSH PRN ×2 (08:21→08:37)
[2021-07-01] MEDS ORDERED: Insulin Glarg,Human.Rec.Analog 100 Unit/ML SUBCUT SCH (08:30)
[2021-07-01] MEDS ORDERED: Insulin Glarg,Human.Rec.Analog 100 Unit/ML ONE (09:08)
--- NOTE | 2021-07-01 09:27 | PCM.PN ---
- General Info Date of Service: 07/01/21 Admission Dx/Problem (Free Text): Admission Diagnosis/Problem Admission Diagnosis/Problem Hyperglycemia without ketosis hypoxia altered mental status byron uti Subjective Update: Patient is more alert today. Awake, eating and watching tv. Feels better. she is known for medication non complance. Insulin drip was initiated and then stopped when glucose was less than 500. Sugars are variable, started at 1046, then 455, then 295, then after eating and a sliding scale of 10 units with meals increased to 324 and 488. IV fluids were stopped as Po intake is better. On Rocehin for UTI, based off previous culture earlier this month. no new complaints. is now living at [facility] and medications will be given once stabilized - Review of Systems General: Reports: No Symptoms HEENT: Reports: No Symptoms Pulmonary: Reports: No Symptoms Cardiovascular: Reports: No Symptoms Gastrointestinal: Reports: No Symptoms Genitourinary: Reports: No Symptoms Musculoskeletal: Reports: No Symptoms Skin: Reports: No Symptoms Neurological: Reports: No Symptoms Psychiatric: Reports: No Symptoms - Patient Data Vitals - Most Recent: Last Vital Signs Temp 35.8 C L 07/01/21 08:00 Pulse 58 L 07/01/21 08:00 Resp 14 07/01/21 08:00 BP 138/81 07/01/21 08:00 Pulse Ox 94 L 07/01/21 08:00 Weight - Most Recent: 101.8 kg I&O - Last 24 Hours: Intake & Output 06/30/21 07/01/21 07/01/21 22:59 06:59 14:59 Intake Total 240 654 Output Total 600 850 Balance -360 -196 Lab Results Last 24 Hours: Laboratory Results - last 24 hr 06/30/21 06/30/21 06/30/21 Range/Units 12:55 12:55 12:55 WBC 10.7 H (4.0-10.2) K/uL RBC 4.00 (3.77-5.09) M/uL Hgb 12.4 (11.7-15.5) g/dL Hct 38.9 (34.0-46.0) % MCV 97.3 (84.0-98.0) fL MCH 31.0 (28.2-33.3) pg MCHC 31.9 (31.7-36.0) g/dL RDW 13.8 (11.2-14.1) % Plt Count 209 (150-350) K/uL MPV (7.00-11.50) fL Neut % (Auto) 79.3 (45.0-80.0) % Lymph % (Auto) 10.0 (10.0-50.0) % [place] % (Auto) 9.6 (2.0-14.0) % Eos % (Auto) 0.8 (0.0-5.0) % Baso % (Auto) 0.3 (0.0-2.0) % Neut # (Auto) 8.46 H (1.40-7.00) K/uL Lymph # (Auto) 1.07 (0.50-3.50) K/uL [place] # (Auto) 1.02 H (0.00-1.00) K/uL Eos # (Auto) 0.09 (0.00-0.50) K/uL Baso # (Auto) 0.03 (0.00-0.20) K/uL D-Dimer, Quantitative (0-400) ng/mL ABG pH (7.35-7.45) ABG pCO2 (35-45) mmHG ABG pO2 (80-105) mmHG ABG HCO3 (22-26) mmol/L ABG Total CO2 (23-27) mmol/L ABG O2 Saturation (95-98) % ABG Base Excess (-2-3) mmol/L O2 Delivery Device Oxygen Flow Rate L/min Sodium 118 L* (136-145) mmol/L Potassium 5.1 (3.5-5.1) mmol/L Chloride 79 L* (98-107) mmol/L Carbon Dioxide 30.9 (21.0-32.0) mmol/L Anion Gap 13.2 (7-15) meq/L BUN 63 H (7-18) mg/dL Creatinine 2.55 H (0.51-1.17) mg/dL Est Cr Clr Drug Dosing TNP Estimated GFR (MDRD) 20 mL/min Glucose 1046 H* (70-99) mg/dL POC Glucose (70-99) mg/dL Lactic Acid (0.4-2.0) mmol/L Calcium 8.9 (8.5-10.1) mg/dL Magnesium 3.0 H (1.8-2.4) mg/dL Total Bilirubin 0.5 (0.2-1.0) mg/dL AST 11 L (15-37) U/L ALT 13 (12-78) U/L Alkaline Phosphatase 231 H (46-116) IU/L Ammonia (11-32) umol/L Troponin I High Sens 14 (<=51) ng/L NT-Pro-B Natriuret Pep 5368 H (0-125) pg/mL Total Protein 7.6 (6.4-8.2) g/dL Albumin 3.1 L (3.4-5.0) g/dL Specimen Type Urine Color Urine Appearance Urine pH (5.0-9.0) Ur Specific [place] (1.005-1.030) Urine Protein (NEGATIVE) mg/dL Urine Glucose (UA) (NEGATIVE) mg/dL Urine Ketones (NEGATIVE) mg/dL Urine Occult Blood (NEGATIVE) Urine Nitrite (NEGATIVE) Urine Bilirubin (NEGATIVE) Urine Urobilinogen (0.2-1.0) E.U./dL Ur Leukocyte Esterase (NEGATIVE) Urine RBC /HPF Urine WBC /HPF Ur Epithelial Cells /LPF Urine Bacteria (NONE TO FEW) /HPF Urine Mucus (NEGATIVE) /LPF Urine Yeast (NEGATIVE) /HPF Urine Opiates Screen (NEGATIVE) Ur Buprenorphine Scrn (NEGATIVE) Ur Oxycodone Screen (NEGATIVE) Ur EDDP (Meth Metab) (NEGATIVE) Ur Barbiturates Screen (NEGATIVE) Ur Tricyclics Screen (NEGATIVE) Ur Amphetamine Screen (NEGATIVE) U Methamphetamines Scrn (NEGATIVE) Urine MDMA Screen (NEGATIVE) U Benzodiazepines Scrn (NEGATIVE) U Cocaine Metab Screen (NEGATIVE) U Marijuana (THC) Screen (NEGATIVE) Ketones Negative 06/30/21 06/30/21 06/30/21 Range/Units 12:55 12:55 12:55 WBC (4.0-10.2) K/uL RBC (3.77-5.09) M/uL Hgb (11.7-15.5) g/dL Hct (34.0-46.0) % MCV (84.0-98.0) fL MCH (28.2-33.3) pg MCHC (31.7-36.0) g/dL RDW (11.2-14.1) % Plt Count (150-350) K/uL MPV (7.00-11.50) fL Neut % (Auto) (45.0-80.0) % Lymph % (Auto) (10.0-50.0) % [place] % (Auto) (2.0-14.0) % Eos % (Auto) (0.0-5.0) % Baso % (Auto) (0.0-2.0) % Neut # (Auto) (1.40-7.00) K/uL Lymph # (Auto) (0.50-3.50) K/uL [place] # (Auto) (0.00-1.00) K/uL Eos # (Auto) (0.00-0.50) K/uL Baso # (Auto) (0.00-0.20) K/uL D-Dimer, Quantitative 387 (0-400) ng/mL ABG pH (7.35-7.45) ABG pCO2 (35-45) mmHG ABG pO2 (80-105) mmHG ABG HCO3 (22-26) mmol/L ABG Total CO2 (23-27) mmol/L ABG O2 Saturation (95-98) % ABG Base Excess (-2-3) mmol/L O2 Delivery Device Oxygen Flow Rate L/min Sodium (136-145) mmol/L Potassium (3.5-5.1) mmol/L Chloride (98-107) mmol/L Carbon Dioxide (21.0-32.0) mmol/L Anion Gap (7-15) meq/L BUN (7-18) mg/dL Creatinine (0.51-1.17) mg/dL Est Cr Clr Drug Dosing Estimated GFR (MDRD) mL/min Glucose (70-99) mg/dL POC Glucose (70-99) mg/dL Lactic Acid 2.6 H (0.4-2.0) mmol/L Calcium (8.5-10.1) mg/dL Magnesium (1.8-2.4) mg/dL Total Bilirubin (0.2-1.0) mg/dL AST (15-37) U/L ALT (12-78) U/L Alkaline Phosphatase (46-116) IU/L Ammonia 13 (11-32) umol/L Troponin I High Sens (<=51) ng/L NT-Pro-B Natriuret Pep (0-125) pg/mL Total Protein (6.4-8.2) g/dL Albumin (3.4-5.0) g/dL Specimen Type Urine Color Urine Appearance Urine pH (5.0-9.0) Ur Specific [place] (1.005-1.030) Urine Protein (NEGATIVE) mg/dL Urine Glucose (UA) (NEGATIVE) mg/dL Urine Ketones (NEGATIVE) mg/dL Urine Occult Blood (NEGATIVE) Urine Nitrite (NEGATIVE) Urine Bilirubin (NEGATIVE) Urine Urobilinogen (0.2-1.0) E.U./dL Ur Leukocyte Esterase (NEGATIVE) Urine RBC /HPF Urine WBC /HPF Ur Epithelial Cells /LPF Urine Bacteria (NONE TO FEW) /HPF Urine Mucus (NEGATIVE) /LPF Urine Yeast (NEGATIVE) /HPF Urine Opiates Screen (NEGATIVE) Ur Buprenorphine Scrn (NEGATIVE) Ur Oxycodone Screen (NEGATIVE) Ur EDDP (Meth Metab) (NEGATIVE) Ur Barbiturates Screen (NEGATIVE) Ur Tricyclics Screen (NEGATIVE) Ur Amphetamine Screen (NEGATIVE) U Methamphetamines Scrn (NEGATIVE) Urine MDMA Screen (NEGATIVE) U Benzodiazepines Scrn (NEGATIVE) U Cocaine Metab Screen (NEGATIVE) U Marijuana (THC) Screen (NEGATIVE) Ketones 06/30/21 06/30/21 06/30/21 Range/Units 13:19 14:20 14:20 WBC (4.0-10.2) K/uL RBC (3.77-5.09) M/uL Hgb (11.7-15.5) g/dL Hct (34.0-46.0) % MCV (84.0-98.0) fL MCH (28.2-33.3) pg MCHC (31.7-36.0) g/dL RDW (11.2-14.1) % Plt Count (150-350) K/uL MPV (7.00-11.50) fL Neut % (Auto) (45.0-80.0) % Lymph % (Auto) (10.0-50.0) % [place] % (Auto) (2.0-14.0) % Eos % (Auto) (0.0-5.0) % Baso % (Auto) (0.0-2.0) % Neut # (Auto) (1.40-7.00) K/uL Lymph # (Auto) (0.50-3.50) K/uL [place] # (Auto) (0.00-1.00) K/uL Eos # (Auto) (0.00-0.50) K/uL Baso # (Auto) (0.00-0.20) K/uL D-Dimer, Quantitative (0-400) ng/mL ABG pH 7.40 (7.35-7.45) ABG pCO2 49 H (35-45) mmHG ABG pO2 68 L* (80-105) mmHG ABG HCO3 30.4 H (22-26) mmol/L ABG Total CO2 31 H (23-27) mmol/L ABG O2 Saturation 93 L (95-98) % ABG Base Excess 5 H (-2-3) mmol/L O2 Delivery Device Room air Oxygen Flow Rate 2 L/min Sodium (136-145) mmol/L Potassium (3.5-5.1) mmol/L Chloride (98-107) mmol/L Carbon Dioxide (21.0-32.0) mmol/L Anion Gap (7-15) meq/L BUN (7-18) mg/dL Creatinine (0.51-1.17) mg/dL Est Cr Clr Drug Dosing Estimated GFR (MDRD) mL/min Glucose (70-99) mg/dL POC Glucose (70-99) mg/dL Lactic Acid (0.4-2.0) mmol/L Calcium (8.5-10.1) mg/dL Magnesium (1.8-2.4) mg/dL Total Bilirubin (0.2-1.0) mg/dL AST (15-37) U/L ALT (12-78) U/L Alkaline Phosphatase (46-116) IU/L Ammonia (11-32) umol/L Troponin I High Sens (<=51) ng/L NT-Pro-B Natriuret Pep (0-125) pg/mL Total Protein (6.4-8.2) g/dL Albumin (3.4-5.0) g/dL Specimen Type Ur[place]ath Urine Color Yellow Urine Appearance Cloudy Urine pH 5.5 (5.0-9.0) Ur Specific [place] 1.010 (1.005-1.030) Urine Protein Negative (NEGATIVE) mg/dL Urine Glucose (UA) 500 H (NEGATIVE) mg/dL Urine Ketones Negative (NEGATIVE) mg/dL Urine Occult Blood Moderate H (NEGATIVE) Urine Nitrite Negative (NEGATIVE) Urine Bilirubin Negative (NEGATIVE) Urine Urobilinogen 0.2 (0.2-1.0) E.U./dL Ur Leukocyte Esterase Large H (NEGATIVE) Urine RBC 0-5 /HPF Urine WBC >100 H /HPF Ur Epithelial Cells Moderate H /LPF Urine Bacteria Few (NONE TO FEW) /HPF Urine Mucus Few H (NEGATIVE) /LPF Urine Yeast Many H (NEGATIVE) /HPF Urine Opiates Screen Negative (NEGATIVE) Ur Buprenorphine Scrn Negative (NEGATIVE) Ur Oxycodone Screen Negative (NEGATIVE) Ur EDDP (Meth Metab) Negative (NEGATIVE) Ur Barbiturates Screen Negative (NEGATIVE) Ur Tricyclics Screen Negative (NEGATIVE) Ur Amphetamine Screen Negative (NEGATIVE) U Methamphetamines Scrn Negative (NEGATIVE) Urine MDMA Screen Negative (NEGATIVE) U Benzodiazepines Scrn Negative (NEGATIVE) U Cocaine Metab Screen Negative (NEGATIVE) U Marijuana (THC) Screen Negative (NEGATIVE) Ketones 06/30/21 06/30/21 06/30/21 Range/Units 16:10 17:01 17:01 WBC (4.0-10.2) K/uL RBC (3.77-5.09) M/uL Hgb (11.7-15.5) g/dL Hct (34.0-46.0) % MCV (84.0-98.0) fL MCH (28.2-33.3) pg MCHC (31.7-36.0) g/dL RDW (11.2-14.1) % Plt Count (150-350) K/uL MPV (7.00-11.50) fL Neut % (Auto) (45.0-80.0) % Lymph % (Auto) (10.0-50.0) % [place] % (Auto) (2.0-14.0) % Eos % (Auto) (0.0-5.0) % Baso % (Auto) (0.0-2.0) % Neut # (Auto) (1.40-7.00) K/uL Lymph # (Auto) (0.50-3.50) K/uL [place] # (Auto) (0.00-1.00) K/uL Eos # (Auto) (0.00-0.50) K/uL Baso # (Auto) (0.00-0.20) K/uL D-Dimer, Quantitative (0-400) ng/mL ABG pH (7.35-7.45) ABG pCO2 (35-45) mmHG ABG pO2 (80-105) mmHG ABG HCO3 (22-26) mmol/L ABG Total CO2 (23-27) mmol/L ABG O2 Saturation (95-98) % ABG Base Excess (-2-3) mmol/L O2 Delivery Device Oxygen Flow Rate L/min Sodium 131 L D (136-145) mmol/L Potassium 3.7 (3.5-5.1) mmol/L Chloride 92 L D (98-107) mmol/L Carbon Dioxide 30.2 (21.0-32.0) mmol/L Anion Gap 12.5 (7-15) meq/L BUN 58 H (7-18) mg/dL Creatinine 2.10 H (0.51-1.17) mg/dL Est Cr Clr Drug Dosing TNP Estimated GFR (MDRD) 25 mL/min Glucose 455 H* (70-99) mg/dL POC Glucose 496 H* (70-99) mg/dL Lactic Acid 2.3 H (0.4-2.0) mmol/L Calcium 8.6 (8.5-10.1) mg/dL Magnesium (1.8-2.4) mg/dL Total Bilirubin (0.2-1.0) mg/dL AST (15-37) U/L ALT (12-78) U/L Alkaline Phosphatase (46-116) IU/L Ammonia (11-32) umol/L Troponin I High Sens (<=51) ng/L NT-Pro-B Natriuret Pep (0-125) pg/mL Total Protein (6.4-8.2) g/dL Albumin (3.4-5.0) g/dL Specimen Type Urine Color Urine Appearance Urine pH (5.0-9.0) Ur Specific [place] (1.005-1.030) Urine Protein (NEGATIVE) mg/dL Urine Glucose (UA) (NEGATIVE) mg/dL Urine Ketones (NEGATIVE) mg/dL Urine Occult Blood (NEGATIVE) Urine Nitrite (NEGATIVE) Urine Bilirubin (NEGATIVE) Urine Urobilinogen (0.2-1.0) E.U./dL Ur Leukocyte Esterase (NEGATIVE) Urine RBC /HPF Urine WBC /HPF Ur Epithelial Cells /LPF Urine Bacteria (NONE TO FEW) /HPF Urine Mucus (NEGATIVE) /LPF Urine Yeast (NEGATIVE) /HPF Urine Opiates Screen (NEGATIVE) Ur Buprenorphine Scrn (NEGATIVE) Ur Oxycodone Screen (NEGATIVE) Ur EDDP (Meth Metab) (NEGATIVE) Ur Barbiturates Screen (NEGATIVE) Ur Tricyclics Screen (NEGATIVE) Ur Amphetamine Screen (NEGATIVE) U Methamphetamines Scrn (NEGATIVE) Urine MDMA Screen (NEGATIVE) U Benzodiazepines Scrn (NEGATIVE) U Cocaine Metab Screen (NEGATIVE) U Marijuana (THC) Screen (NEGATIVE) Ketones 06/30/21 07/01/21 07/01/21 Range/Units 19:41 00:31 05:24 WBC (4.0-10.2) K/uL RBC (3.77-5.09) M/uL Hgb (11.7-15.5) g/dL Hct (34.0-46.0) % MCV (84.0-98.0) fL MCH (28.2-33.3) pg MCHC (31.7-36.0) g/dL RDW (11.2-14.1) % Plt Count (150-350) K/uL MPV (7.00-11.50) fL Neut % (Auto) (45.0-80.0) % Lymph % (Auto) (10.0-50.0) % [place] % (Auto) (2.0-14.0) % Eos % (Auto) (0.0-5.0) % Baso % (Auto) (0.0-2.0) % Neut # (Auto) (1.40-7.00) K/uL Lymph # (Auto) (0.50-3.50) K/uL [place] # (Auto) (0.00-1.00) K/uL Eos # (Auto) (0.00-0.50) K/uL Baso # (Auto) (0.00-0.20) K/uL D-Dimer, Quantitative (0-400) ng/mL ABG pH (7.35-7.45) ABG pCO2 (35-45) mmHG ABG pO2 (80-105) mmHG ABG HCO3 (22-26) mmol/L ABG Total CO2 (23-27) mmol/L ABG O2 Saturation (95-98) % ABG Base Excess (-2-3) mmol/L O2 Delivery Device Oxygen Flow Rate L/min Sodium 134 L (136-145) mmol/L Potassium 4.0 (3.5-5.1) mmol/L Chloride 97 L (98-107) mmol/L Carbon Dioxide 29.6 (21.0-32.0) mmol/L Anion Gap 11.4 (7-15) meq/L BUN 51 H (7-18) mg/dL Creatinine 1.74 H (0.51-1.17) mg/dL Est Cr Clr Drug Dosing 27.89 Estimated GFR (MDRD) 30 mL/min Glucose 488 H* (70-99) mg/dL POC Glucose 295 H 324 H (70-99) mg/dL Lactic Acid (0.4-2.0) mmol/L Calcium 8.4 L (8.5-10.1) mg/dL Magnesium (1.8-2.4) mg/dL Total Bilirubin (0.2-1.0) mg/dL AST (15-37) U/L ALT (12-78) U/L Alkaline Phosphatase (46-116) IU/L Ammonia (11-32) umol/L Troponin I High Sens (<=51) ng/L NT-Pro-B Natriuret Pep (0-125) pg/mL Total Protein (6.4-8.2) g/dL Albumin (3.4-5.0) g/dL Specimen Type Urine Color Urine Appearance Urine pH (5.0-9.0) Ur Specific [place] (1.005-1.030) Urine Protein (NEGATIVE) mg/dL Urine Glucose (UA) (NEGATIVE) mg/dL Urine Ketones (NEGATIVE) mg/dL Urine Occult Blood (NEGATIVE) Urine Nitrite (NEGATIVE) Urine Bilirubin (NEGATIVE) Urine Urobilinogen (0.2-1.0) E.U./dL Ur Leukocyte Esterase (NEGATIVE) Urine RBC /HPF Urine WBC /HPF Ur Epithelial Cells /LPF Urine Bacteria (NONE TO FEW) /HPF Urine Mucus (NEGATIVE) /LPF Urine Yeast (NEGATIVE) /HPF Urine Opiates Screen (NEGATIVE) Ur Buprenorphine Scrn (NEGATIVE) Ur Oxycodone Screen (NEGATIVE) Ur EDDP (Meth Metab) (NEGATIVE) Ur Barbiturates Screen (NEGATIVE) Ur Tricyclics Screen (NEGATIVE) Ur Amphetamine Screen (NEGATIVE) U Methamphetamines Scrn (NEGATIVE) Urine MDMA Screen (NEGATIVE) U Benzodiazepines Scrn (NEGATIVE) U Cocaine Metab Screen (NEGATIVE) U Marijuana (THC) Screen (NEGATIVE) Ketones 07/01/21 07/01/21 Range/Units 05:24 07:49 WBC 8.8 (4.0-10.2) K/uL RBC 3.80 (3.77-5.09) M/uL Hgb 11.8 (11.7-15.5) g/dL Hct 35.3 (34.0-46.0) % MCV 92.9 D (84.0-98.0) fL MCH 31.1 (28.2-33.3) pg MCHC 33.4 (31.7-36.0) g/dL RDW 13.8 (11.2-14.1) % Plt Count 200 (150-350) K/uL MPV 11.40 (7.00-11.50) fL Neut % (Auto) (45.0-80.0) % Lymph % (Auto) (10.0-50.0) % [place] % (Auto) (2.0-14.0) % Eos % (Auto) (0.0-5.0) % Baso % (Auto) (0.0-2.0) % Neut # (Auto) (1.40-7.00) K/uL Lymph # (Auto) (0.50-3.50) K/uL [place] # (Auto) (0.00-1.00) K/uL Eos # (Auto) (0.00-0.50) K/uL Baso # (Auto) (0.00-0.20) K/uL D-Dimer, Quantitative (0-400) ng/mL ABG pH (7.35-7.45) ABG pCO2 (35-45) mmHG ABG pO2 (80-105) mmHG ABG HCO3 (22-26) mmol/L ABG Total CO2 (23-27) mmol/L ABG O2 Saturation (95-98) % ABG Base Excess (-2-3) mmol/L O2 Delivery Device Oxygen Flow Rate L/min Sodium (136-145) mmol/L Potassium (3.5-5.1) mmol/L Chloride (98-107) mmol/L Carbon Dioxide (21.0-32.0) mmol/L Anion Gap (7-15) meq/L BUN (7-18) mg/dL Creatinine (0.51-1.17) mg/dL Est Cr Clr Drug Dosing Estimated GFR (MDRD) mL/min Glucose (70-99) mg/dL POC Glucose 527 H* (70-99) mg/dL Lactic Acid (0.4-2.0) mmol/L Calcium (8.5-10.1) mg/dL Magnesium (1.8-2.4) mg/dL Total Bilirubin (0.2-1.0) mg/dL AST (15-37) U/L ALT (12-78) U/L Alkaline Phosphatase (46-116) IU/L Ammonia (11-32) umol/L Troponin I High Sens (<=51) ng/L NT-Pro-B Natriuret Pep (0-125) pg/mL Total Protein (6.4-8.2) g/dL Albumin (3.4-5.0) g/dL Specimen Type Urine Color Urine Appearance Urine pH (5.0-9.0) Ur Specific [place] (1.005-1.030) Urine Protein (NEGATIVE) mg/dL Urine Glucose (UA) (NEGATIVE) mg/dL Urine Ketones (NEGATIVE) mg/dL Urine Occult Blood (NEGATIVE) Urine Nitrite (NEGATIVE) Urine Bilirubin (NEGATIVE) Urine Urobilinogen (0.2-1.0) E.U./dL Ur Leukocyte Esterase (NEGATIVE) Urine RBC /HPF Urine WBC /HPF Ur Epithelial Cells /LPF Urine Bacteria (NONE TO FEW) /HPF Urine Mucus (NEGATIVE) /LPF Urine Yeast (NEGATIVE) /HPF Urine Opiates Screen (NEGATIVE) Ur Buprenorphine Scrn (NEGATIVE) Ur Oxycodone Screen (NEGATIVE) Ur EDDP (Meth Metab) (NEGATIVE) Ur Barbiturates Screen (NEGATIVE) Ur Tricyclics Screen (NEGATIVE) Ur Amphetamine Screen (NEGATIVE) U Methamphetamines Scrn (NEGATIVE) Urine MDMA Screen (NEGATIVE) U Benzodiazepines Scrn (NEGATIVE) U Cocaine Metab Screen (NEGATIVE) U Marijuana (THC) Screen (NEGATIVE) Ketones Med Orders - Current: Current Medications Acetaminophen (Acetaminophen 325 Mg Tab) 650 mg PO Q4H PRN PRN Reason: Pain (Mild 1-3)/fever Hydrocodone Bitart/Acetaminophen (Acetaminophen/Hydrocodone 325-5 Mg Tab) 1 tab PO Q4H PRN PRN Reason: Pain (moderate 4-6) Albuterol (Albuterol 0.083% 2.5 Mg/3 Ml Neb Soln) 2.5 mg NEB Q2H PRN PRN Reason: Shortness Of Breath/wheezing Amlodipine Besylate (Amlodipine 5 Mg Tab) 5 mg PO DAILY [facility] Last Admin: 07/01/21 07:37 Dose: 5 mg Documented by: Apixaban (Apixaban 5 Mg Tab) 5 mg PO DAILY [facility] Last Admin: 07/01/21 07:39 Dose: 5 mg Documented by: Atorvastatin Calcium (Atorvastatin 40 Mg Tab) 40 mg PO BEDTIME [facility] Last Admin: 06/30/21 19:56 Dose: 40 mg Documented by: Bisacodyl (Bisacodyl 5 Mg Tab) 5 mg PO DAILY PRN PRN Reason: Constipation Bumetanide (Bumetanide 1 Mg Tab) 4 mg PO BIDDIURETIC [facility] Last Admin: 07/01/21 07:36 Dose: 4 mg Documented by: Carvedilol (Carvedilol 6.25 Mg Tab) 6.25 mg PO BIDMEALS [facility] Last Admin: 07/01/21 07:39 Dose: 6.25 mg Documented by: Citalopram Hydrobromide (Citalopram 20 Mg Tab) 40 mg PO DAILY [facility] Last Admin: 07/01/21 07:38 Dose: 40 mg Documented by: Clonazepam (Clonazepam 0.5 Mg Tab) 0.5 mg PO BEDTIME [facility] Last Admin: 06/30/21 19:56 Dose: 0.5 mg Documented by: Clopidogrel Bisulfate (Clopidogrel 75 Mg Tab) 75 mg PO DAILY [facility] Last Admin: 07/01/21 07:39 Dose: 75 mg Documented by: Dextrose/Water (50% Dextrose In Water 50 Ml Syringe) 50 ml IVPUSH ASDIRECTED PRN PRN Reason: Hypoglycemia Gabapentin (Gabapentin 400 Mg Cap) 800 mg PO TID [facility] Last Admin: 07/01/21 07:38 Dose: 800 mg Documented by: Glucagon (Glucagon,Human Recombinant 1 Mg Vial) 1 mg IM ASDIRECTED PRN PRN Reason: Hypoglycemia Sodium Chloride (Normal Saline) 1,000 mls @ 999 mls/hr IV ASDIRECTED [facility] Last Admin: 06/30/21 15:00 Dose: 999 mls/hr Documented by: Sodium Chloride (Normal Saline) 1,000 mls @ 999 mls/hr IV ASDIRECTED [facility] Last Admin: 06/30/21 15:01 Dose: 999 mls/hr Documented by: Sodium Chloride (Normal Saline) 1,000 mls @ 100 mls/hr IV ASDIRECTED DERICK Sodium Chloride (Normal Saline) 1,000 mls @ 75 mls/hr IV ASDIRECTED [facility] Stop: 07/03/21 04:34 Ceftriaxone Sodium 1 gm/ (Sodium Chloride) 100 mls @ 200 mls/hr IV Q24H [facility] Insulin Glargine (Insulin Glarg,Human.Rec.Analog 100 Unit/Ml) 25 unit SUBCUT DAILY [facility] Insulin Human Lispro (Insulin Lispro 100 Units/Ml 3 Ml Vial) 0 unit SUBCUT TI DAC [facility]; Protocol Last Admin: 07/01/21 07:55 Dose: 10 units Documented by: Insulin Human Lispro (Insulin Lispro 100 Units/Ml 3 Ml Vial) 13 unit SUBCUT TIDAC [facility] Isosorbide Mononitrate (Isosorbide Mononitrate 30 Mg Tab.Er) 30 mg PO DAILY [facility] Last Admin: 07/01/21 07:37 Dose: 30 mg Documented by: Latanoprost (Latanoprost 0.005% Ophth Soln 2.5 Ml Bottle) 0 ml EYELF BEDTIME [facility] Last Admin: 06/30/21 20:12 Dose: 1 drop Documented by: Levothyroxine Sodium (Levothyroxine 25 Mcg Tab) 25 mcg PO ACBREAKFAST [facility] Last Admin: 07/01/21 07:39 Dose: 25 mcg Documented by: Omeprazole (Omeprazole 20 Mg Cap.Cr) 20 mg PO BEDTIME [facility] Last Admin: 06/30/21 19:56 Dose: 20 mg Documented by: Ondansetron HCl (Ondansetron 4 Mg Tab.Dis) 4 mg PO Q4H PRN PRN Reason: Nausea/Vomiting Last Admin: 07/01/21 07:34 Dose: 4 mg Documented by: Ondansetron HCl (Ondansetron 4 Mg/2 Ml Sdv) 4 mg IVPUSH Q4H PRN PRN Reason: Nausea/Vomiting Quetiapine Fumarate (Quetiapine 25 Mg Tab) 50 mg PO BID [facility] Last Admin: 07/01/21 07:35 Dose: 50 mg Documented by: Sodium Chloride (Sodium Chloride 0.9% 10 Ml Syringe) 10 ml FLUSH ASDIRECTED PRN PRN Reason: Keep Vein Open Spironolactone (Spironolactone 25 Mg Tab) 50 mg PO DAILY [facility] Last Admin: 07/01/21 07:35 Dose: 50 mg Documented by: Timolol Maleate (Timolol Maleate 0.5% Ophth Soln 5 Ml Bottle) 0 ml EYELF BID [facility] Last Admin: 07/01/21 07:50 Dose: 1 drop Documented by: Discontinued Medications Ceftriaxone Sodium (Ceftriaxone 2 Gm Vial) 1 gm IVPUSH Q24H [facility] Last Admin: 06/30/21 15:10 Dose: 1 gm Documented by: Dextrose/Water (50% Dextrose In Water 50 Ml Syringe) 50 ml IVPUSH ASDIRECTED PRN PRN Reason: Hypoglycemia Dextrose/Water (50% Dextrose In Water 50 Ml Syringe) 50 ml IVPUSH ASDIRECTED PRN PRN Reason: Hypoglycemia Furosemide (Furosemide 40 Mg Tab) 40 mg PO DAILY [facility] Glucagon (Glucagon,Human Recombinant 1 Mg Vial) 1 mg IM ASDIRECTED PRN PRN Reason: Hypoglycemia Glucagon (Glucagon,Human Recombinant 1 Mg Vial) 1 mg IM ASDIRECTED PRN PRN Reason: Hypoglycemia Insulin Human Regular 100 unit (/ Sodium Chloride) 100 mls @ 10.18 mls/hr IV TITRATE [facility]; Protocol Last Admin: 06/30/21 14:31 Dose: 0.1 units/kg/hr, 10.18 mls/hr Documented by: Insulin Glargine (Insulin Glarg,Human.Rec.Analog 100 Unit/Ml) 22 unit SUBCUT DAILY [facility] Insulin Glargine (Insulin Glarg,Human.Rec.Analog 100 Unit/Ml) Confirm Administered Dose 100 unit .ROUTE .[facility] Stop: 07/01/21 09:09 Insulin Human Lispro (Insulin Lispro 100 Units/Ml 3 Ml Vial) 0 unit SUBCUT ASDIRECTED [facility]; Protocol Insulin Human Regular (Insulin Regular, Human 100 Units/Ml 3 Ml Vial) 10 unit IV ONETIME ONE Stop: 06/30/21 13:20 Last Admin: 06/30/21 13:41 Dose: 10 units Documented by: Naloxone HCl (Naloxone 2 Mg/2 Ml Syringe) 2 mg IVPUSH ONETIME ONE Stop: 06/30/21 13:31 Last Admin: 06/30/21 13:35 Dose: 2 mg Documented by: - Exam Quality Assessment: Supplemental Oxygen (at hs, and admission. 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, blind in left eye) Lungs: Clear to Auscultation Cardiovascular: Regular Rate, Regular Rhythm GI/Abdominal Exam: Normal Bowel Sounds, Soft Extremities: Normal Inspection, Normal Range of Motion Skin: Warm Neurological: No New Focal Deficit Psy/Mental Status: Alert - Patient Data Lab Results Last 24 hrs: Laboratory Results - last 24 hr 06/30/21 06/30/21 06/30/21 Range/Units 12:55 12:55 12:55 WBC 10.7 H (4.0-10.2) K/uL RBC 4.00 (3.77-5.09) M/uL Hgb 12.4 (11.7-15.5) g/dL Hct 38.9 (34.0-46.0) % MCV 97.3 (84.0-98.0) fL MCH 31.0 (28.2-33.3) pg MCHC 31.9 (31.7-36.0) g/dL RDW 13.8 (11.2-14.1) % Plt Count 209 (150-350) K/uL MPV (7.00-11.50) fL Neut % (Auto) 79.3 (45.0-80.0) % Lymph % (Auto) 10.0 (10.0-50.0) % [place] % (Auto) 9.6 (2.0-14.0) % Eos % (Auto) 0.8 (0.0-5.0) % Baso % (Auto) 0.3 (0.0-2.0) % Neut # (Auto) 8.46 H (1.40-7.00) K/uL Lymph # (Auto) 1.07 (0.50-3.50) K/uL [place] # (Auto) 1.02 H (0.00-1.00) K/uL Eos # (Auto) 0.09 (0.00-0.50) K/uL Baso # (Auto) 0.03 (0.00-0.20) K/uL D-Dimer, Quantitative (0-400) ng/mL ABG pH (7.35-7.45) ABG pCO2 (35-45) mmHG ABG pO2 (80-105) mmHG ABG HCO3 (22-26) mmol/L ABG Total CO2 (23-27) mmol/L ABG O2 Saturation (95-98) % ABG Base Excess (-2-3) mmol/L O2 Delivery Device Oxygen Flow Rate L/min Sodium 118 L* (136-145) mmol/L Potassium 5.1 (3.5-5.1) mmol/L Chloride 79 L* (98-107) mmol/L Carbon Dioxide 30.9 (21.0-32.0) mmol/L Anion Gap 13.2 (7-15) meq/L BUN 63 H (7-18) mg/dL Creatinine 2.55 H (0.51-1.17) mg/dL Est Cr Clr Drug Dosing TNP Estimated GFR (MDRD) 20 mL/min Glucose 1046 H* (70-99) mg/dL POC Glucose (70-99) mg/dL Lactic Acid (0.4-2.0) mmol/L Calcium 8.9 (8.5-10.1) mg/dL Magnesium 3.0 H (1.8-2.4) mg/dL Total Bilirubin 0.5 (0.2-1.0) mg/dL AST 11 L (15-37) U/L ALT 13 (12-78) U/L Alkaline Phosphatase 231 H (46-116) IU/L Ammonia (11-32) umol/L Troponin I High Sens 14 (<=51) ng/L NT-Pro-B Natriuret Pep 5368 H (0-125) pg/mL Total Protein 7.6 (6.4-8.2) g/dL Albumin 3.1 L (3.4-5.0) g/dL Specimen Type Urine Color Urine Appearance Urine pH (5.0-9.0) Ur Specific [place] (1.005-1.030) Urine Protein (NEGATIVE) mg/dL Urine Glucose (UA) (NEGATIVE) mg/dL Urine Ketones (NEGATIVE) mg/dL Urine Occult Blood (NEGATIVE) Urine Nitrite (NEGATIVE) Urine Bilirubin (NEGATIVE) Urine Urobilinogen (0.2-1.0) E.U./dL Ur Leukocyte Esterase (NEGATIVE) Urine RBC /HPF Urine WBC /HPF Ur Epithelial Cells /LPF Urine Bacteria (NONE TO FEW) /HPF Urine Mucus (NEGATIVE) /LPF Urine Yeast (NEGATIVE) /HPF Urine Opiates Screen (NEGATIVE) Ur Buprenorphine Scrn (NEGATIVE) Ur Oxycodone Screen (NEGATIVE) Ur EDDP (Meth Metab) (NEGATIVE) Ur Barbiturates Screen (NEGATIVE) Ur Tricyclics Screen (NEGATIVE) Ur Amphetamine Screen (NEGATIVE) U Methamphetamines Scrn (NEGATIVE) Urine MDMA Screen (NEGATIVE) U Benzodiazepines Scrn (NEGATIVE) U Cocaine Metab Screen (NEGATIVE) U Marijuana (THC) Screen (NEGATIVE) Ketones Negative 06/30/21 06/30/21 06/30/21 Range/Units 12:55 12:55 12:55 WBC (4.0-10.2) K/uL RBC (3.77-5.09) M/uL Hgb (11.7-15.5) g/dL Hct (34.0-46.0) % MCV (84.0-98.0) fL MCH (28.2-33.3) pg MCHC (31.7-36.0) g/dL RDW (11.2-14.1) % Plt Count (150-350) K/uL MPV (7.00-11.50) fL Neut % (Auto) (45.0-80.0) % Lymph % (Auto) (10.0-50.0) % [place] % (Auto) (2.0-14.0) % Eos % (Auto) (0.0-5.0) % Baso % (Auto) (0.0-2.0) % Neut # (Auto) (1.40-7.00) K/uL Lymph # (Auto) (0.50-3.50) K/uL [place] # (Auto) (0.00-1.00) K/uL Eos # (Auto) (0.00-0.50) K/uL Baso # (Auto) (0.00-0.20) K/uL D-Dimer, Quantitative 387 (0-400) ng/mL ABG pH (7.35-7.45) ABG pCO2 (35-45) mmHG ABG pO2 (80-105) mmHG ABG HCO3 (22-26) mmol/L ABG Total CO2 (23-27) mmol/L ABG O2 Saturation (95-98) % ABG Base Excess (-2-3) mmol/L O2 Delivery Device Oxygen Flow Rate L/min Sodium (136-145) mmol/L Potassium (3.5-5.1) mmol/L Chloride (98-107) mmol/L Carbon Dioxide (21.0-32.0) mmol/L Anion Gap (7-15) meq/L BUN (7-18) mg/dL Creatinine (0.51-1.17) mg/dL Est Cr Clr Drug Dosing Estimated GFR (MDRD) mL/min Glucose (70-99) mg/dL POC Glucose (70-99) mg/dL Lactic Acid 2.6 H (0.4-2.0) mmol/L Calcium (8.5-10.1) mg/dL Magnesium (1.8-2.4) mg/dL Total Bilirubin (0.2-1.0) mg/dL AST (15-37) U/L ALT (12-78) U/L Alkaline Phosphatase (46-116) IU/L Ammonia 13 (11-32) umol/L Troponin I High Sens (<=51) ng/L NT-Pro-B Natriuret Pep (0-125) pg/mL Total Protein (6.4-8.2) g/dL Albumin (3.4-5.0) g/dL Specimen Type Urine Color Urine Appearance Urine pH (5.0-9.0) Ur Specific [place] (1.005-1.030) Urine Protein (NEGATIVE) mg/dL Urine Glucose (UA) (NEGATIVE) mg/dL Urine Ketones (NEGATIVE) mg/dL Urine Occult Blood (NEGATIVE) Urine Nitrite (NEGATIVE) Urine Bilirubin (NEGATIVE) Urine Urobilinogen (0.2-1.0) E.U./dL Ur Leukocyte Esterase (NEGATIVE) Urine RBC /HPF Urine WBC /HPF Ur Epithelial Cells /LPF Urine Bacteria (NONE TO FEW) /HPF Urine Mucus (NEGATIVE) /LPF Urine Yeast (NEGATIVE) /HPF Urine Opiates Screen (NEGATIVE) Ur Buprenorphine Scrn (NEGATIVE) Ur Oxycodone Screen (NEGATIVE) Ur EDDP (Meth Metab) (NEGATIVE) Ur Barbiturates Screen (NEGATIVE) Ur Tricyclics Screen (NEGATIVE) Ur Amphetamine Screen (NEGATIVE) U Methamphetamines Scrn (NEGATIVE) Urine MDMA Screen (NEGATIVE) U Benzodiazepines Scrn (NEGATIVE) U Cocaine Metab Screen (NEGATIVE) U Marijuana (THC) Screen (NEGATIVE) Ketones 06/30/21 06/30/21 06/30/21 Range/Units 13:19 14:20 14:20 WBC (4.0-10.2) K/uL RBC (3.77-5.09) M/uL Hgb (11.7-15.5) g/dL Hct (34.0-46.0) % MCV (84.0-98.0) fL MCH (28.2-33.3) pg MCHC (31.7-36.0) g/dL RDW (11.2-14.1) % Plt Count (150-350) K/uL MPV (7.00-11.50) fL Neut % (Auto) (45.0-80.0) % Lymph % (Auto) (10.0-50.0) % [place] % (Auto) (2.0-14.0) % Eos % (Auto) (0.0-5.0) % Baso % (Auto) (0.0-2.0) % Neut # (Auto) (1.40-7.00) K/uL Lymph # (Auto) (0.50-3.50) K/uL [place] # (Auto) (0.00-1.00) K/uL Eos # (Auto) (0.00-0.50) K/uL Baso # (Auto) (0.00-0.20) K/uL D-Dimer, Quantitative (0-400) ng/mL ABG pH 7.40 (7.35-7.45) ABG pCO2 49 H (35-45) mmHG ABG pO2 68 L* (80-105) mmHG ABG HCO3 30.4 H (22-26) mmol/L ABG Total CO2 31 H (23-27) mmol/L ABG O2 Saturation 93 L (95-98) % ABG Base Excess 5 H (-2-3) mmol/L O2 Delivery Device Room air Oxygen Flow Rate 2 L/min Sodium (136-145) mmol/L Potassium (3.5-5.1) mmol/L Chloride (98-107) mmol/L Carbon Dioxide (21.0-32.0) mmol/L Anion Gap (7-15) meq/L BUN (7-18) mg/dL Creatinine (0.51-1.17) mg/dL Est Cr Clr Drug Dosing Estimated GFR (MDRD) mL/min Glucose (70-99) mg/dL POC Glucose (70-99) mg/dL Lactic Acid (0.4-2.0) mmol/L Calcium (8.5-10.1) mg/dL Magnesium (1.8-2.4) mg/dL Total Bilirubin (0.2-1.0) mg/dL AST (15-37) U/L ALT (12-78) U/L Alkaline Phosphatase (46-116) IU/L Ammonia (11-32) umol/L Troponin I High Sens (<=51) ng/L NT-Pro-B Natriuret Pep (0-125) pg/mL Total Protein (6.4-8.2) g/dL Albumin (3.4-5.0) g/dL Specimen Type Urincath Urine Color Yellow Urine Appearance Cloudy Urine pH 5.5 (5.0-9.0) Ur Specific [place] 1.010 (1.005-1.030) Urine Protein Negative (NEGATIVE) mg/dL Urine Glucose (UA) 500 H (NEGATIVE) mg/dL Urine Ketones Negative (NEGATIVE) mg/dL Urine Occult Blood Moderate H (NEGATIVE) Urine Nitrite Negative (NEGATIVE) Urine Bilirubin Negative (NEGATIVE) Urine Urobilinogen 0.2 (0.2-1.0) E.U./dL Ur Leukocyte Esterase Large H (NEGATIVE) Urine RBC 0-5 /HPF Urine WBC >100 H /HPF Ur Epithelial Cells Moderate H /LPF Urine Bacteria Few (NONE TO FEW) /HPF Urine Mucus Few H (NEGATIVE) /LPF Urine Yeast Many H (NEGATIVE) /HPF Urine Opiates Screen Negative (NEGATIVE) Ur Buprenorphine Scrn Negative (NEGATIVE) Ur Oxycodone Screen Negative (NEGATIVE) Ur EDDP (Meth Metab) Negative (NEGATIVE) Ur Barbiturates Screen Negative (NEGATIVE) Ur Tricyclics Screen Negative (NEGATIVE) Ur Amphetamine Screen Negative (NEGATIVE) U Methamphetamines Scrn Negative (NEGATIVE) Urine MDMA Screen Negative (NEGATIVE) U Benzodiazepines Scrn Negative (NEGATIVE) U Cocaine Metab Screen Negative (NEGATIVE) U Marijuana (THC) Screen Negative (NEGATIVE) Ketones 06/30/21 06/30/21 06/30/21 Range/Units 16:10 17:01 17:01 WBC (4.0-10.2) K/uL RBC (3.77-5.09) M/uL Hgb (11.7-15.5) g/dL Hct (34.0-46.0) % MCV (84.0-98.0) fL MCH (28.2-33.3) pg MCHC (31.7-36.0) g/dL RDW (11.2-14.1) % Plt Count (150-350) K/uL MPV (7.00-11.50) fL Neut % (Auto) (45.0-80.0) % Lymph % (Auto) (10.0-50.0) % [place] % (Auto) (2.0-14.0) % Eos % (Auto) (0.0-5.0) % Baso % (Auto) (0.0-2.0) % Neut # (Auto) (1.40-7.00) K/uL Lymph # (Auto) (0.50-3.50) K/uL [place] # (Auto) (0.00-1.00) K/uL Eos # (Auto) (0.00-0.50) K/uL Baso # (Auto) (0.00-0.20) K/uL D-Dimer, Quantitative (0-400) ng/mL ABG pH (7.35-7.45) ABG pCO2 (35-45) mmHG ABG pO2 (80-105) mmHG ABG HCO3 (22-26) mmol/L ABG Total CO2 (23-27) mmol/L ABG O2 Saturation (95-98) % ABG Base Excess (-2-3) mmol/L O2 Delivery Device Oxygen Flow Rate L/min Sodium 131 L D (136-145) mmol/L Potassium 3.7 (3.5-5.1) mmol/L Chloride 92 L D (98-107) mmol/L Carbon Dioxide 30.2 (21.0-32.0) mmol/L Anion Gap 12.5 (7-15) meq/L BUN 58 H (7-18) mg/dL Creatinine 2.10 H (0.51-1.17) mg/dL Est Cr Clr Drug Dosing TNP Estimated GFR (MDRD) 25 mL/min Glucose 455 H* (70-99) mg/dL POC Glucose 496 H* (70-99) mg/dL Lactic Acid 2.3 H (0.4-2.0) mmol/L Calcium 8.6 (8.5-10.1) mg/dL Magnesium (1.8-2.4) mg/dL Total Bilirubin (0.2-1.0) mg/dL AST (15-37) U/L ALT (12-78) U/L Alkaline Phosphatase (46-116) IU/L Ammonia (11-32) umol/L Troponin I High Sens (<=51) ng/L NT-Pro-B Natriuret Pep (0-125) pg/mL Total Protein (6.4-8.2) g/dL Albumin (3.4-5.0) g/dL Specimen Type Urine Color Urine Appearance Urine pH (5.0-9.0) Ur Specific [place] (1.005-1.030) Urine Protein (NEGATIVE) mg/dL Urine Glucose (UA) (NEGATIVE) mg/dL Urine Ketones (NEGATIVE) mg/dL Urine Occult Blood (NEGATIVE) Urine Nitrite (NEGATIVE) Urine Bilirubin (NEGATIVE) Urine Urobilinogen (0.2-1.0) E.U./dL Ur Leukocyte Esterase (NEGATIVE) Urine RBC /HPF Urine WBC /HPF Ur Epithelial Cells /LPF Urine Bacteria (NONE TO FEW) /HPF Urine Mucus (NEGATIVE) /LPF Urine Yeast (NEGATIVE) /HPF Urine Opiates Screen (NEGATIVE) Ur Buprenorphine Scrn (NEGATIVE) Ur Oxycodone Screen (NEGATIVE) Ur EDDP (Meth Metab) (NEGATIVE) Ur Barbiturates Screen (NEGATIVE) Ur Tricyclics Screen (NEGATIVE) Ur Amphetamine Screen (NEGATIVE) U Methamphetamines Scrn (NEGATIVE) Urine MDMA Screen (NEGATIVE) U Benzodiazepines Scrn (NEGATIVE) U Cocaine Metab Screen (NEGATIVE) U Marijuana (THC) Screen (NEGATIVE) Ketones 06/30/21 07/01/21 07/01/21 Range/Units 19:41 00:31 05:24 WBC (4.0-10.2) K/uL RBC (3.77-5.09) M/uL Hgb (11.7-15.5) g/dL Hct (34.0-46.0) % MCV (84.0-98.0) fL MCH (28.2-33.3) pg MCHC (31.7-36.0) g/dL RDW (11.2-14.1) % Plt Count (150-350) K/uL MPV (7.00-11.50) fL Neut % (Auto) (45.0-80.0) % Lymph % (Auto) (10.0-50.0) % [place] % (Auto) (2.0-14.0) % Eos % (Auto) (0.0-5.0) % Baso % (Auto) (0.0-2.0) % Neut # (Auto) (1.40-7.00) K/uL Lymph # (Auto) (0.50-3.50) K/uL [place] # (Auto) (0.00-1.00) K/uL Eos # (Auto) (0.00-0.50) K/uL Baso # (Auto) (0.00-0.20) K/uL D-Dimer, Quantitative (0-400) ng/mL ABG pH (7.35-7.45) ABG pCO2 (35-45) mmHG ABG pO2 (80-105) mmHG ABG HCO3 (22-26) mmol/L ABG Total CO2 (23-27) mmol/L ABG O2 Saturation (95-98) % ABG Base Excess (-2-3) mmol/L O2 Delivery Device Oxygen Flow Rate L/min Sodium 134 L (136-145) mmol/L Potassium 4.0 (3.5-5.1) mmol/L Chloride 97 L (98-107) mmol/L Carbon Dioxide 29.6 (21.0-32.0) mmol/L Anion Gap 11.4 (7-15) meq/L BUN 51 H (7-18) mg/dL Creatinine 1.74 H (0.51-1.17) mg/dL Est Cr Clr Drug Dosing 27.89 Estimated GFR (MDRD) 30 mL/min Glucose 488 H* (70-99) mg/dL POC Glucose 295 H 324 H (70-99) mg/dL Lactic Acid (0.4-2.0) mmol/L Calcium 8.4 L (8.5-10.1) mg/dL Magnesium (1.8-2.4) mg/dL Total Bilirubin (0.2-1.0) mg/dL AST (15-37) U/L ALT (12-78) U/L Alkaline Phosphatase (46-116) IU/L Ammonia (11-32) umol/L Troponin I High Sens (<=51) ng/L NT-Pro-B Natriuret Pep (0-125) pg/mL Total Protein (6.4-8.2) g/dL Albumin (3.4-5.0) g/dL Specimen Type Urine Color Urine Appearance Urine pH (5.0-9.0) Ur Specific [place] (1.005-1.030) Urine Protein (NEGATIVE) mg/dL Urine Glucose (UA) (NEGATIVE) mg/dL Urine Ketones (NEGATIVE) mg/dL Urine Occult Blood (NEGATIVE) Urine Nitrite (NEGATIVE) Urine Bilirubin (NEGATIVE) Urine Urobilinogen (0.2-1.0) E.U./dL Ur Leukocyte Esterase (NEGATIVE) Urine RBC /HPF Urine WBC /HPF Ur Epithelial Cells /LPF Urine Bacteria (NONE TO FEW) /HPF Urine Mucus (NEGATIVE) /LPF Urine Yeast (NEGATIVE) /HPF Urine Opiates Screen (NEGATIVE) Ur Buprenorphine Scrn (NEGATIVE) Ur Oxycodone Screen (NEGATIVE) Ur EDDP (Meth Metab) (NEGATIVE) Ur Barbiturates Screen (NEGATIVE) Ur Tricyclics Screen (NEGATIVE) Ur Amphetamine Screen (NEGATIVE) U Methamphetamines Scrn (NEGATIVE) Urine MDMA Screen (NEGATIVE) U Benzodiazepines Scrn (NEGATIVE) U Cocaine Metab Screen (NEGATIVE) U Marijuana (THC) Screen (NEGATIVE) Ketones 07/01/21 07/01/21 Range/Units 05:24 07:49 WBC 8.8 (4.0-10.2) K/uL RBC 3.80 (3.77-5.09) M/uL Hgb 11.8 (11.7-15.5) g/dL Hct 35.3 (34.0-46.0) % MCV 92.9 D (84.0-98.0) fL MCH 31.1 (28.2-33.3) pg MCHC 33.4 (31.7-36.0) g/dL RDW 13.8 (11.2-14.1) % Plt Count 200 (150-350) K/uL MPV 11.40 (7.00-11.50) fL Neut % (Auto) (45.0-80.0) % Lymph % (Auto) (10.0-50.0) % [place] % (Auto) (2.0-14.0) % Eos % (Auto) (0.0-5.0) % Baso % (Auto) (0.0-2.0) % Neut # (Auto) (1.40-7.00) K/uL Lymph # (Auto) (0.50-3.50) K/uL [place] # (Auto) (0.00-1.00) K/uL Eos # (Auto) (0.00-0.50) K/uL Baso # (Auto) (0.00-0.20) K/uL D-Dimer, Quantitative (0-400) ng/mL ABG pH (7.35-7.45) ABG pCO2 (35-45) mmHG ABG pO2 (80-105) mmHG ABG HCO3 (22-26) mmol/L ABG Total CO2 (23-27) mmol/L ABG O2 Saturation (95-98) % ABG Base Excess (-2-3) mmol/L O2 Delivery Device Oxygen Flow Rate L/min Sodium (136-145) mmol/L Potassium (3.5-5.1) mmol/L Chloride (98-107) mmol/L Carbon Dioxide (21.0-32.0) mmol/L Anion Gap (7-15) meq/L BUN (7-18) mg/dL Creatinine (0.51-1.17) mg/dL Est Cr Clr Drug Dosing Estimated GFR (MDRD) mL/min Glucose (70-99) mg/dL POC Glucose 527 H* (70-99) mg/dL Lactic Acid (0.4-2.0) mmol/L Calcium (8.5-10.1) mg/dL Magnesium (1.8-2.4) mg/dL Total Bilirubin (0.2-1.0) mg/dL AST (15-37) U/L ALT (12-78) U/L Alkaline Phosphatase (46-116) IU/L Ammonia (11-32) umol/L Troponin I High Sens (<=51) ng/L NT-Pro-B Natriuret Pep (0-125) pg/mL Total Protein (6.4-8.2) g/dL Albumin (3.4-5.0) g/dL Specimen Type Urine Color Urine Appearance Urine pH (5.0-9.0) Ur Specific [place] (1.005-1.030) Urine Protein (NEGATIVE) mg/dL Urine Glucose (UA) (NEGATIVE) mg/dL Urine Ketones (NEGATIVE) mg/dL Urine Occult Blood (NEGATIVE) Urine Nitrite (NEGATIVE) Urine Bilirubin (NEGATIVE) Urine Urobilinogen (0.2-1.0) E.U./dL Ur Leukocyte Esterase (NEGATIVE) Urine RBC /HPF Urine WBC /HPF Ur Epithelial Cells /LPF Urine Bacteria (NONE TO FEW) /HPF Urine Mucus (NEGATIVE) /LPF Urine Yeast (NEGATIVE) /HPF Urine Opiates Screen (NEGATIVE) Ur Buprenorphine Scrn (NEGATIVE) Ur Oxycodone Screen (NEGATIVE) Ur EDDP (Meth Metab) (NEGATIVE) Ur Barbiturates Screen (NEGATIVE) Ur Tricyclics Screen (NEGATIVE) Ur Amphetamine Screen (NEGATIVE) U Methamphetamines Scrn (NEGATIVE) Urine MDMA Screen (NEGATIVE) U Benzodiazepines Scrn (NEGATIVE) U Cocaine Metab Screen (NEGATIVE) U Marijuana (THC) Screen (NEGATIVE) Ketones Result Diagrams: 07/01/21 05:24 07/01/21 05:24 Sepsis Event Note - Evaluation Sepsis Screening Result: No Definite Risk - Focused Exam Vital Signs: Vital Signs Temp Temp Pulse Pulse Resp BP BP 07/01/21 08:00 35.8 C L 58 L 14 138/81 07/01/21 07:39 58 L 138/81 07/01/21 07:37 138/81 07/01/21 02:34 54 L 07/01/21 02:22 07/01/21 00:35 37.3 C 51 L 12 111/52 L Pulse Ox 07/01/21 08:00 94 L 07/01/21 07:39 07/01/21 07:37 07/01/21 02:34 96 07/01/21 02:22 95 07/01/21 00:35 100 - Problem List & Annotations (1) Hyperosmolar hyperglycemic state (HHS) SNOMED Code(s): 421803823 Code(s): E11.00 - TYPE 2 DIAB W HYPROSM W/O NONKET HYPRGLY-HYPROS COMA (NKHHC); E11.65 - TYPE 2 DIABETES MELLITUS WITH HYPERGLYCEMIA Status: Acute Priority: High Current Visit: Yes Annotation/Comment:: Improving, awake and alert, blood sugars are variable, given her poor compliance. at last admission in [place] they increased her to lantus 25 units daily, will restart this and fast acting insulin 13 units with meals plus medium sliding scale. Will institute this and monitor. (2) Hyponatremia SNOMED Code(s): 09297531 Code(s): E87.1 - HYPO-OSMOLALITY AND HYPONATREMIA Status: Acute Current Visit: Yes Annotation/Comment:: Improving, normal sodium and other nelson ctrolytes. creatinine normalized (3) Hypoxia SNOMED Code(s): 830669037 Code(s): R09.02 - HYPOXEMIA Status: Acute Current Visit: Yes Annotation/Comment:: improved. off oxygen. does take a fiar amount of medications that can cause sedation and resultant hypoxia ( seroquel, clonazepam, narcotics) (4) Noncompliance SNOMED Code(s): 8691876 Code(s): Z91.19 - PATIENT'S NONCOMPLIANCE W OTH MEDICAL TREATMENT AND REGIMEN Status: Acute Current Visit: Yes Annotation/Comment:: Unsure of patient's capacity to understand the need for continuous monitoring and treatment of her diabetes. Is scheduled to return to [place] that will take care of this for her. (5) UTI, Urinary tract infectious disease SNOMED Code(s): 76963262 Code(s): N39.0 - URINARY TRACT INFECTION, SITE NOT SPECIFIED Status: Acute Current Visit: Yes Annotation/Comment:: Culture is pending. On Rocephin IV based on last cutlure result earlier this month. Afebrile, doing well, normal WBC - Problem List Review Problem List Initiated/Reviewed/Updated: Yes - My Orders Last 24 Hours: My Active Orders 06/30/21 12:52 Sodium Chloride 0.9% [Saline Flush] 10 ml FLUSH ASDIRECTED PRN Peripheral IV Insertion Adult [OM.PC] Routine 06/30/21 12:56 Chest 1V Frontal [CR] Stat 06/30/21 13:00 Sodium Chloride 0.9% [Normal Saline] 1,000 ml IV ASDIRECTED 06/30/21 13:19 Dextrose 50% in Water 50 ml IVPUSH ASDIRECTED PRN Glucagon,Human Recombinant [GlucaGen] 1 mg IM ASDIRECTED PRN 06/30/21 13:25 Blood Glucose Check, Bedside [RC] WITHMEALSANDBED 06/30/21 13:53 Admission Status [Patient Status] [ADT] Routine 06/30/21 14:15 Sodium Chloride 0.9% [Normal Saline] 1,000 ml IV ASDIRECTED 06/30/21 14:20 CULTURE URINE [RM] Stat 06/30/21 15:00 Height and Weight [RC] 06 Oxygen Therapy [RC] .PRN Up to Chair [RC] .PRN VTE/DVT Education [RC] PER UNIT ROUTINE Vital Signs [RC] 04,08,12,16,20,00 Acetaminophen [TylenoL] 650 mg PO Q4H PRN Acetaminophen/HYDROcodone [[place] 325-5 MG] 1 tab PO Q4H PRN Albuterol [Proventil Neb Soln] 2.5 mg NEB Q2H PRN Ondansetron [Zofran ODT] 4 mg PO Q4H PRN Ondansetron [Zofran] 4 mg IVPUSH Q4H PRN Sodium Chloride 0.9% [Normal Saline] 1,000 ml IV ASDIRECTED bisacodyL [Dulcolax] 5 mg PO DAILY PRN Glucose Management Sub Q Reflex [OM.PC] Click to Edit Resuscitation Status Routine 06/30/21 15:01 Pulse Oximetry [RC] .PRN 06/30/21 15:02 Diabetes Education [RC] Click to Edit 06/30/21 15:04 RT Aerosol Therapy [RC] .PRN 06/30/21 15:15 Sodium Chloride 0.9% [Normal Saline] 1,000 ml IV ASDIRECTED 06/30/21 Dinner [employer] Diet [DIET] Insulin Lispro [HumaLOG] See Protocol SUBCUT TIDAC carvediloL [Coreg] 6.25 mg PO BIDMEALS 06/30/21 18:00 Gabapentin [Neurontin] 800 mg PO TID QUEtiapine [SEROqueL] 50 mg PO BID timoloL maleate [Timoptic 0.5% Ophth Soln] 0 ml EYELF BID 06/30/21 20:00 ClonazePAM [KlonoPIN] 0.5 mg PO BEDTIME Latanoprost [Xalatan 0.005% Ophth Soln] 0 ml EYELF BEDTIME Omeprazole 20 mg PO BEDTIME atorvaSTATin [Lipitor] 40 mg PO BEDTIME 07/01/21 07:30 Levothyroxine 25 mcg PO ACBREAKFAST 07/01/21 08:00 Apixaban [Eliquis] 5 mg PO DAILY Bumetanide [Bumex] 4 mg PO BIDDIURETIC Citalopram [Celexa] 40 mg PO DAILY Clopidogrel [Plavix] 75 mg PO DAILY Isosorbide Mononitrate [Imdur] 30 mg PO DAILY Spironolactone [Aldactone] 50 mg PO DAILY amLODIPine [Norvasc] 5 mg PO DAILY 07/01/21 09:30 Lactobacillus Rhamnosus GG [Culturelle] 1 cap PO BID 07/01/21 11:30 Insulin Lispro [HumaLOG] 13 unit SUBCUT TIDAC 07/01/21 15:00 cefTRIAXone [Rocephin] 1 gm Sodium Chloride 0.9% [Normal Saline] 100 ml IV Q24H 07/02/21 05:11 BASIC METABOLIC PANEL,BMP [CHEM] AM CBC W/O DIFF,HEMOGRAM [HEME] AM LACTIC ACID [CHEM] AM MAGNESIUM [CHEM] AM 07/02/21 08:00 Insulin Glarg,Human.Rec.Analog [LantUS] 25 unit SUBCUT DAILY 07/03/21 05:11 CBC W/O DIFF,HEMOGRAM [HEME] AM - Assessment Assessment:: HHS, improving, increase insulin, continue to monitor. UTI, await culture, continue antibiotics - Plan Plan:: increase insulin to 13 units plus medium sliding scale with meals. Lantus 25 units daily. Continue Rocephin, add probiotic. Plan for possible discharge 1-2 days.
[2021-07-01] MEDS: Lactobacillus Rhamnosus GG (Probiotic) Cap PO SCH ×2 (09:39→17:03)
[2021-07-01] MEDS ORDERED: Sodium Chloride 0.9% 500 ML IV ONE (12:15)
[2021-07-01] MEDS ORDERED: Sodium Chloride 0.9% 250 ML IV SCH (12:45)
[2021-07-01] MEDS ORDERED: cefTRIAXone 1 GM in Sodium Chloride 0.9% 100 ML IV SCH (15:00)
--- NOTE | 2021-07-01 16:43 | PCM.SN.2 ---
- Free Text/Narrative Note: NOte, insulin drip was stopped earlier today, patient was having higher blood sugars. restarted. doing well. stopped at 17:00 due to blood glucose less than 300. will continue meal time rapid
[2021-07-01] MEDS: atorvaSTATin 40 MG Tab PO SCH (19:34)
[2021-07-01] MEDS: ClonazePAM 0.5 MG Tab PO SCH (19:34)
[2021-07-01] MEDS: Omeprazole 20 MG Cap.CR PO SCH (19:35)
[2021-07-01] MEDS: Latanoprost 0.005% Ophth Soln 2.5 ML Bottle EYELF SCH (19:35)
[2021-07-01] MEDS ORDERED: Loperamide 2 MG Tab PO ONE (22:17)
--- NOTE | 2021-07-02 07:08 | PCM.DCSUM1 ---
Discharge Summary - Hospital Course Free Text/Narrative:: Patient's blood sugars improved, has group home and will be receiving medications, stable for discharge to group home HPI Initial Comments: Presented lethargic, hypoxic and with a blood glucose of greater than 1000 but not in DKA. Well documented non compliance with insulin, continues with illicit drug use and poor personal cares. Brief History: Insulin drip was started, stopped initially but restarted when started eating due to rise in blood sugars. Stabilized and improving but still needs continued work. Normal electrolytes and is being sent to facility that can manage glucose, medications. some white blood cells in urine, hygiene was less than ideal and could be contamination but being covered for infection. History of c diff, has tolerated ceaphalosporins in the hospital so will send home on probiotic and keflex. needs O2 at night due to probable sleep apnea. Study may be needed Diagnosis: Stroke: No Modified [place] Scale: Mod.Disablility Requiring Some Help,Able to Walk Without Assistance Modified [place] Scale Score: 3 - Discharge Data Discharge Date: 07/02/21 Discharge Disposition: DC/Tfer to [facility] Condition: Fair - Referral to Home Health Primary Care Physician: Micaela Mensah MD Skilled Need: Unable to care for self, noncompliance with medications with critical illness ( IDDM). - Discharge Diagnosis/Problem(s) (1) Hyperosmolar hyperglycemic state (HHS) SNOMED Code(s): 049507052 ICD Code: E11.00 - TYPE 2 DIAB W HYPROSM W/O NONKET HYPRGLY-HYPROS COMA ([facility]); E11.65 - TYPE 2 DIABETES MELLITUS WITH HYPERGLYCEMIA Status: Chronic Priority: High Current Visit: Yes Problem Details: 07/02/2021 blood glucose remains under 300 with 25 units of lantus and 13 units regular plus sliding scale. Needs continued monitoring and improvement. FDC to continues cares Improving, awake and alert, blood sugars are variable, given her poor compliance. at last admission in [place] they increased her to lantus 25 units daily, will restart this and fast acting insulin 13 units with meals plus medium sliding scale. Will institute this and monitor. (2) Hyponatremia SNOMED Code(s): 37603266 ICD Code: E87.1 - HYPO-OSMOLALITY AND HYPONATREMIA Status: Resolved Current Visit: Yes Problem Details: Improving, normal sodium and other electrolytes. creatinine normalized (3) Hypoxia SNOMED Code(s): 379350953 ICD Code: R09.02 - HYPOXEMIA Status: Acute Current Visit: Yes Problem Details: 07/02/2021 during day and while awake not a problem, but during sleep is sonorous sound with decreased oxygen, query sleep apnea. Did well with 1-2 lpm nc or in the mouth to maintain sats. needs to continue during sleep improved. off oxygen. does take a fiar amount of medications that can cause sedation and resultant hypoxia ( seroquel, clonazepam, narcotics) (4) Noncompliance SNOMED Code(s): 6348629 ICD Code: Z91.19 - PATIENT'S NONCOMPLIANCE W OTH MEDICAL TREATMENT AND REGIMEN Status: Chronic Current Visit: Yes Problem Details: 07/02/2021 patient will be sent to [facility] with group home and this problem should be alleviated Unsure of patient's capacity to understand the need for continuous monitoring and treatment of her diabetes. Is scheduled to return to [facility] that will take care of this for her. (5) UTI, Urinary tract infectious disease SNOMED Code(s): 78606029 ICD Code: N39.0 - URINARY TRACT INFECTION, SITE NOT SPECIFIED Status: Acute Current Visit: Yes Problem Details: 07/02/2021 hygeine is poor. could be contaminants, will cove with keflex for 3 more days probitoic due to history of c diff. has tolerated rocephin IV multiple times in hospital. Culture is pending. On Rocephin IV based on last cutlure result earlier this month. Afebrile, doing well, normal WBC - Patient Summary/Data Recommended Follow-up Testing/Procedures: continued monitoring of glucose with improved AIC, possible sleep apnea evalaution Hospital Course: presented with HHS, DEBBIE and possible UTI. Was given narcan also due to history of smoking marijuana and cocaine the day prior. Drug screen negative. more alert, eating and answering questions. Blood glucose improved along with electrolytes and creatinine. discharge to group home - Patient Instructions Diet: Diabetic Diet Showering/Bathing: May Shower - Discharge Plan *PRESCRIPTION DRUG MONITORING PROGRAM REVIEWED*: Not Applicable *COPY OF PRESCRIPTION DRUG MONITORING REPORT IN PATIENT LINDA: Not Applicable Prescriptions/Med Rec: cephALEXin [Keflex] 500 mg PO Q8H 3 Days #12 cap Lactobacillus Acidophilus [Probiotic] 1 each PO DAILY #14 capsule Home Medications: Home Meds Ondansetron [Zofran ODT] 4 mg PO Q4HR PRN 12/27/13 [History] Acetaminophen 650 mg PO Q6HR PRN 06/30/21 [History] Apixaban [Eliquis] 5 mg PO BID 06/30/21 [History] Bumetanide [Bumex] 4 mg PO 08,14 06/30/21 [History] Cetirizine [ZyrTEC] 10 mg PO DAILY 06/30/21 [History] Citalopram Hydrobromide [Celexa] 40 mg PO 0800 06/30/21 [History] ClonazePAM [KlonoPIN] 0.5 mg PO 0800 06/30/21 [History] Clopidogrel Bisulfate [Plavix] 75 mg PO DAILY 06/30/21 [History] Cyanocobalamin (Vitamin B12) [Vitamin B12] 1,000 mcg PO DAILY 06/30/21 [History] Diclofenac Sodium [Voltaren 1% Gel] 2 gram TOP QID 06/30/21 [History] Ferrous Sulfate 325 mg PO BID 06/30/21 [History] Fluticasone Propionate [Flonase] 1 spray NASBOTH BID 06/30/21 [History] Isosorbide Mononitrate [Imdur] 30 mg PO DAILY 06/30/21 [History] L. Acidophilus/L.bulgaricus [Floranex Tablet] 1 each PO 0800 06/30/21 [History] Latanoprost [Xalatan 0.005% Ophth Soln] 1 drop EYELF BEDTIME 06/30/21 [History] Levothyroxine Sodium [Synthroid] 25 mcg PO DAILY 06/30/21 [History] Loperamide HCl [Loperamide] 2 mg PO ASDIRECTED PRN 06/30/21 [History] Nitroglycerin [Nitrostat] 0.4 mg SL ASDIRECTED PRN 06/30/21 [History] Omeprazole Magnesium [Prilosec Otc] 20 mg PO DAILY PRN 06/30/21 [History] Pregabalin [Lyrica] 50 mg PO TID 06/30/21 [History] QUEtiapine Fumarate [Seroquel] 50 mg PO BID 06/30/21 [History] Spironolactone 50 mg PO 0800 06/30/21 [History] Timolol Maleate/PF [Timolol Maleate 0.5% Eye Drop] 1 drop EYELF BID 06/30/21 [History] Triamcinolone Acetonide [Triamcinolone Acetonide 0.1% Crm] 1 applic TOP BID PRN 06/30/21 [History] Vancomycin [Vancomycin Cap] 250 mg PO BID 06/30/21 [History] amLODIPine [Norvasc] 5 mg PO DAILY 06/30/21 [History] atorvaSTATin Calcium [Lipitor] 40 mg PO BEDTIME 06/30/21 [History] carvediloL [Coreg] 6.25 mg PO BID 06/30/21 [History] levOCARNitine [Levocarnitine] 1,000 mg PO 0800 06/30/21 [History] oxyCODONE 5 mg PO BEDTIME PRN 06/30/21 [History] polyethylene glycoL 3350 [MiraLAX] 17 gm PO DAILY PRN 06/30/21 [History] Alum Hydrox/Mag Hydrox/Simeth [Mag-Al Plus] 30 ml PO Q4HR PRN 07/01/21 [History] Carboxymethylcellulose Sodium [Artificial Tears] 1 drop OP Q4HR PRN 07/01/21 [History] Non-Formulary Medication [NF Drug] 1 injection SUBCUT FR@08 07/01/21 [History] Insulin Glarg,Human.Rec.Analog [Lantus] 25 unit SUBCUT DAILY ml 07/02/21 [Rx] Insulin Lispro [HumaLOG] 0 unit SUBCUT TIDAC vial 07/02/21 [Rx] Insulin Lispro [HumaLOG] 13 unit SUBCUT TIDAC vial 07/02/21 [Rx] Lactobacillus Acidophilus [Probiotic] 1 each PO DAILY #14 capsule 07/02/21 [Rx] cephALEXin [Keflex] 500 mg PO Q8H 3 Days #12 cap 07/02/21 [Rx] Oxygen Therapy Mode: Nasal Cannula (at night 1-2 lpm for sleep apnea) Patient Handouts: Hyperglycemic Hyperosmolar State, Hyperglycemia, Hypg-og-[id number] Forms: ED Department Discharge Referrals: PCP,Unknown [Ordering Only Provider] - - Discharge Summary/Plan Comment DC Time >30 min.: No Total # of Minutes for Discharge Time: 25 Discharge Summary/Plan Comment: Patient was seen for lethargy and elevated blood glucose. Non compliance with insulin. Blood sugars are improved to 250 range with 25 units of lantus daily and 13 units of regular plus sliding scale with meals. Continued vigilance needed. Given IV rocephin and tolerated well. Will continue with keflex and probiotics for UTI, thou concern for contamination due to hygiene is prevalent. Snores with some desaturation at sleeping, corrected with 1-2 lmp of Oxygen via nasal canula. May benefit from cpap, but needs O2 at least at night. None needed during the day. Use caution with medications that cause lethargy and decreased respiratory drive and use caution with patient's history of illicit drug abuse with allowing smoking - Patient Data Vitals - Most Recent: Last Vital Signs Temp 36.4 C 07/02/21 01:34 Pulse 54 L 07/02/21 02:07 Resp 16 07/02/21 01:34 BP 116/54 L 07/02/21 01:34 Pulse Ox 95 07/02/21 05:40 Weight - Most Recent: 101.8 kg I&O - Last 24 hours: Intake & Output 07/01/21 07/01/21 07/02/21 14:59 22:59 06:59 Intake Total 480 1205 Output Total 800 1100 Balance -320 105 Lab Results - Last 24 hrs: Laboratory Results - last 24 hr 07/01/21 07/01/21 07/01/21 Range/Units 07:49 11:09 11:50 POC Glucose 527 H* 560 H* 589 H* (70-99) mg/dL 07/01/21 07/01/21 07/01/21 Range/Units 14:15 15:38 16:27 POC Glucose 381 H 296 H 233 H (70-99) mg/dL 07/01/21 07/01/21 07/01/21 Range/Units 17:00 18:46 22:25 POC Glucose 229 H 233 H 242 H (70-99) mg/dL Med Orders - Current: Current Medications Acetaminophen (Acetaminophen 325 Mg Tab) 650 mg PO Q4H PRN PRN Reason: Pain (Mild 1-3)/fever Last Admin: 07/01/21 19:35 Dose: 650 mg Documented by: Hydrocodone Bitart/Acetaminophen (Acetaminophen/Hydrocodone 325-5 Mg Tab) 1 tab PO Q4H PRN PRN Reason: Pain (moderate 4-6) Albuterol (Albuterol 0.083% 2.5 Mg/3 Ml Neb Soln) 2.5 mg NEB Q2H PRN PRN Reason: Shortness Of Breath/wheezing Amlodipine Besylate (Amlodipine 5 Mg Tab) 5 mg PO DAILY [facility] Last Admin: 07/01/21 07:37 Dose: 5 mg Documented by: Apixaban (Apixaban 5 Mg Tab) 5 mg PO DAILY [facility] Last Admin: 07/01/21 07:39 Dose: 5 mg Documented by: Atorvastatin Calcium (Atorvastatin 40 Mg Tab) 40 mg PO BEDTIME [facility] Last Admin: 07/01/21 19:34 Dose: 40 mg Documented by: Bisacodyl (Bisacodyl 5 Mg Tab) 5 mg PO DAILY PRN PRN Reason: Constipation Bumetanide (Bumetanide 1 Mg Tab) 4 mg PO BIDDIURETIC [facility] Last Admin: 07/01/21 11:15 Dose: 4 mg Documented by: Carvedilol (Carvedilol 6.25 Mg Tab) 6.25 mg PO BIDMEALS [facility] Last Admin: 07/01/21 17:02 Dose: 6.25 mg Documented by: Citalopram Hydrobromide (Citalopram 20 Mg Tab) 40 mg PO DAILY [facility] Last Admin: 07/01/21 07:38 Dose: 40 mg Documented by: Clonazepam (Clonazepam 0.5 Mg Tab) 0.5 mg PO BEDTIME [facility] Last Admin: 07/01/21 19:34 Dose: 0.5 mg Documented by: Clopidogrel Bisulfate (Clopidogrel 75 Mg Tab) 75 mg PO DAILY [facility] Last Admin: 07/01/21 07:39 Dose: 75 mg Documented by: Dextrose/Water (50% Dextrose In Water 50 Ml Syringe) 50 ml IVPUSH ASDIRECTED PRN PRN Reason: Hypoglycemia Gabapentin (Gabapentin 400 Mg Cap) 800 mg PO TID [facility] Last Admin: 07/01/21 17:02 Dose: 800 mg Documented by: Glucagon (Glucagon,Human Recombinant 1 Mg Vial) 1 mg IM ASDIRECTED PRN PRN Reason: Hypoglycemia Ceftriaxone Sodium 1 gm/ (Sodium Chloride) 100 mls @ 200 mls/hr IV Q24H [facility] Last Admin: 07/01/21 14:40 Dose: 200 mls/hr Documented by: Sodium Chloride (Normal Saline) 250 mls @ 25 mls/hr IV ASDIRECTED [facility] Last Admin: 07/01/21 13:18 Dose: 25 mls/hr Documented by: Insulin Glargine (Insulin Glarg,Human.Rec.Analog 100 Unit/Ml) 25 unit SUBCUT DAILY [facility] Insulin Human Lispro (Insulin Lispro 100 Units/Ml 3 Ml Vial) 0 unit SUBCUT TIDAC [facility]; Protocol Last Admin: 07/01/21 17:04 Dose: 4 units Documented by: Insulin Human Lispro (Insulin Lispro 100 Units/Ml 3 Ml Vial) 13 unit SUBCUT TIDAC [facility] Last Admin: 07/01/21 17:05 Dose: 13 units Documented by: Isosorbide Mononitrate (Isosorbide Mononitrate 30 Mg Tab.Er) 30 mg PO DAILY [facility] Last Admin: 07/01/21 07:37 Dose: 30 mg Documented by: Lactobacillus Rhamnosus (Lactobacillus Rhamnosus Gg (Probiotic) Cap) 1 cap PO BID [facility] Last Admin: 07/01/21 17:03 Dose: 1 cap Documented by: Latanoprost (Latanoprost 0.005% Ophth Soln 2.5 Ml Bottle) 0 ml EYELF BEDTIME [facility] Last Admin: 07/01/21 19:35 Dose: 1 drop Documented by: Levothyroxine Sodium (Levothyroxine 25 Mcg Tab) 25 mcg PO ACBREAKFAST [facility] Last Admin: 07/01/21 07:39 Dose: 25 mcg Documented by: Omeprazole (Omeprazole 20 Mg Cap.Cr) 20 mg PO BEDTIME [facility] Last Admin: 07/01/21 19:35 Dose: 20 mg Documented by: Ondansetron HCl (Ondansetron 4 Mg Tab.Dis) 4 mg PO Q4H PRN PRN Reason: Nausea/Vomiting Last Admin: 07/01/21 07:34 Dose: 4 mg Documented by: Ondansetron HCl (Ondansetron 4 Mg/2 Ml Sdv) 4 mg IVPUSH Q4H PRN PRN Reason: Nausea/Vomiting Quetiapine Fumarate (Quetiapine 25 Mg Tab) 50 mg PO BID [facility] Last Admin: 07/01/21 17:03 Dose: 50 mg Documented by: Sodium Chloride (Sodium Chloride 0.9% 10 Ml Syringe) 10 ml FLUSH ASDIRECTED PRN PRN Reason: Keep Vein Open Spironolactone (Spironolactone 25 Mg Tab) 50 mg PO DAILY [facility] Last Admin: 07/01/21 07:35 Dose: 50 mg Documented by: Timolol Maleate (Timolol Maleate 0.5% Ophth Soln 5 Ml Bottle) 0 ml EYELF BID [facility] Last Admin: 07/01/21 17:02 Dose: 1 drop Documented by: Discontinued Medications Ceftriaxone Sodium (Ceftriaxone 2 Gm Vial) 1 gm IVPUSH Q24H [facility] Last Admin: 06/30/21 15:10 Dose: 1 gm Documented by: Dextrose/Water (50% Dextrose In Water 50 Ml Syringe) 50 ml IVPUSH ASDIRECTED PRN PRN Reason: Hypoglycemia Dextrose/Water (50% Dextrose In Water 50 Ml Syringe) 50 ml IVPUSH ASDIRECTED PRN PRN Reason: Hypoglycemia Furosemide (Furosemide 40 Mg Tab) 40 mg PO DAILY [facility] Glucagon (Glucagon,Human Recombinant 1 Mg Vial) 1 mg IM ASDIRECTED PRN PRN Reason: Hypoglycemia Glucagon (Glucagon,Human Recombinant 1 Mg Vial) 1 mg IM ASDIRECTED PRN PRN Reason: Hypoglycemia Sodium Chloride (Normal Saline) 1,000 mls @ 999 mls/hr IV ASDIRECTED [facility] Last Admin: 06/30/21 15:00 Dose: 999 mls/hr Documented by: Insulin Human Regular 100 unit (/ Sodium Chloride) 100 mls @ 10.18 mls/hr IV TITRATE [facility]; Protocol Last Admin: 06/30/21 14:31 Dose: 0.1 units/kg/hr, 10.18 mls/hr Documented by: Sodium Chloride (Normal Saline) 1,000 mls @ 999 mls/hr IV ASDIRECTED [facility] Last Admin: 06/30/21 15:01 Dose: 999 mls/hr Documented by: Sodium Chloride (Normal Saline) 1,000 mls @ 100 mls/hr IV ASDIRECTED [facility] Sodium Chloride (Normal Saline) 1,000 mls @ 75 mls/hr IV ASDIRECTED [facility] Stop: 07/03/21 04:34 Sodium Chloride (Normal Saline) 500 mls @ 999 mls/hr IV .BOLUS ONE Stop: 07/01/21 12:45 Last Admin: 07/01/21 12:17 Dose: 999 mls/hr Documented by: Insulin Human Regular 100 unit (/ Sodium Chloride) 100 mls @ 10.18 mls/hr IV TITRATE [facility]; Protocol Last Titration: 07/01/21 14:30 Dose: 0.07 units/kg/hr, 7.126 mls/hr Documented by: Influenza Virus Vaccine (Flu Vacc [id number](6mos Up)/Pf 60 Mcg/0.5 Ml Syringe) 60 mcg IM .ONCE ONE Stop: 07/01/21 19:31 Insulin Glargine (Insulin Glarg,Human.Rec.Analog 100 Unit/Ml) 22 unit SUBCUT DAILY [facility] Last Admin: 07/01/21 09:38 Dose: 22 units Documented by: Insulin Glargine (Insulin Glarg,Human.Rec.Analog 100 Unit/Ml) Confirm Administered Dose 100 unit .ROUTE .STK-MED ONE Stop: 07/01/21 09:09 Last Admin: 07/01/21 10:10 Dose: Not Given Documented by: Insulin Human Lispro (Insulin Lispro 100 Units/Ml 3 Ml Vial) 0 unit SUBCUT ASDIRECTED [facility]; Protocol Insulin Human Regular (Insulin Regular, Human 100 Units/Ml 3 Ml Vial) 10 unit IV ONETIME ONE Stop: 06/30/21 13:20 Last Admin: 06/30/21 13:41 Dose: 10 units Documented by: Loperamide HCl (Loperamide 2 Mg Tab) 2 mg PO ONETIME ONE Stop: 07/01/21 22:18 Last Admin: 07/01/21 22:28 Dose: 2 mg Documented by: Naloxone HCl (Naloxone 2 Mg/2 Ml Syringe) 2 mg IVPUSH ONETIME ONE Stop: 06/30/21 13:31 Last Admin: 06/30/21 13:35 Dose: 2 mg Documented by:
[2021-07-02] MEDS: Insulin Lispro 100 Units/ML 3 ML Vial SUBCUT SCH ×4 (07:49→11:44)
[2021-07-02] MEDS: Timolol Maleate 0.5% Ophth Soln 5 ML Bottle EYELF SCH (07:51)
[2021-07-02] MEDS: amLODIPine 5 MG Tab PO SCH (07:51)
[2021-07-02] MEDS: Bumetanide 1 MG Tab PO SCH ×2 (07:51→11:46)
[2021-07-02] MEDS: Gabapentin 400 MG Cap PO SCH ×2 (07:52→11:47)
[2021-07-02] MEDS: Spironolactone 25 MG Tab PO SCH (07:52)
[2021-07-02] MEDS: Apixaban 5 MG Tab PO SCH (07:53)
[2021-07-02] MEDS: Isosorbide Mononitrate 30 MG Tab.ER PO SCH (07:53)
[2021-07-02] MEDS: Lactobacillus Rhamnosus GG (Probiotic) Cap PO SCH (07:53)
[2021-07-02] MEDS: QUEtiapine 25 MG Tab PO SCH (07:54)
[2021-07-02] MEDS: Levothyroxine 25 MCG Tab PO SCH (07:54)
[2021-07-02] MEDS: Clopidogrel 75 MG Tab PO SCH (07:54)
[2021-07-02] MEDS: Citalopram 20 MG Tab PO SCH (07:54)
[2021-07-02] MEDS: Carvedilol 6.25 MG Tab PO SCH (07:55)
[2021-07-02] MEDS ORDERED: Insulin Glarg,Human.Rec.Analog 100 Unit/ML SUBCUT SCH (08:00)
[2021-07-02 08:53] LABS: ANION GAP 9.5 meq/L (7-15)
== END 2021-07-02 13:10 | DRG 638 ==
LOC: LL.ED 12:51 → LL.MS 13:54 → UNDOADMIN 14:52 → UNDODISIN 07-02 13:10
PROVIDERS: ADMIT Physician Assistant; ATTEND Physician Assistant
DX: E11.00 Type 2 diabetes mellitus with hyperosmolarity without nonketotic hyperglycemic-hyperosmolar coma (NKHHC) (principal); N39.0 Urinary tract infection, site not specified; E87.1 Hypo-osmolality and hyponatremia; N17.9 Acute kidney failure, unspecified; I13.0 Hypertensive heart and chronic kidney disease with heart failure and stage 1 through stage 4 chronic kidney disease, or unspecified chronic kidney disease; E11.65 Type 2 diabetes mellitus with hyperglycemia; R09.02 Hypoxemia; N18.30 Chronic kidney disease, stage 3 unspecified; E11.22 Type 2 diabetes mellitus with diabetic chronic kidney disease; F41.9 Anxiety disorder, unspecified; F32.A Depression, unspecified; E78.00 Pure hypercholesterolemia, unspecified; J44.9 Chronic obstructive pulmonary disease, unspecified; K21.9 Gastro-esophageal reflux disease without esophagitis; E11.42 Type 2 diabetes mellitus with diabetic polyneuropathy; G47.30 Sleep apnea, unspecified; H54.40 Blindness, one eye, unspecified eye; J30.9 Allergic rhinitis, unspecified; Z89.511 Acquired absence of right leg below knee; I50.9 Heart failure, unspecified; I49.3 Ventricular premature depolarization; E03.9 Hypothyroidism, unspecified; F17.210 Nicotine dependence, cigarettes, uncomplicated; Z91.19 Patient's noncompliance with other medical treatment and regimen; Z79.899 Other long term (current) drug therapy; Z88.0 Allergy status to penicillin; Z88.1 Allergy status to other antibiotic agents; Z88.8 Allergy status to other drugs, medicaments and biological substances; Z79.4 Long term (current) use of insulin; Z88.2 Allergy status to sulfonamides
CPT/HCPCS: 36415; 36600; 71045; 80048; 80053; 80305-QW; 81001; 82009; 82140; 82803; 82947; 83605; 83735; 83880; 84484; 85025; 85027; 85379; 87086; 93005; 93010; 99285-25; A9270-GY; J0696; J1815-GY; J2310; J7030; J7040; J7050

== ENCOUNTER 2021-10-22 19:58 | Inpatient (IN) | payer MEDICARE, MEDICAID ==
[2021-10-22] MEDS ORDERED: Lactated Ringers 1,000 ML IV ONE (20:27)
[2021-10-22] MEDS: Sodium Chloride 0.9% 10 ML Syringe FLUSH PRN (20:40)
[2021-10-22] MEDS ORDERED: Sodium Chloride 0.9% 10 ML Syringe FLUSH PRN (21:06)
[2021-10-22] MEDS ORDERED: LACTATED RINGERS IV ONE ×2 (21:06)
[2021-10-22] MEDS ORDERED: SODIUM CHLORIDE 0.9% IV ONE ×2 (21:06)
[2021-10-22] MEDS ORDERED: Piperacillin/Tazobactam 4.5 GM in Sodium Chloride 0.9% 100 ML IV ONE (21:06)
[2021-10-22 21:15] LABS: ANION GAP 8.8 meq/L (7-15); CHLORIDE,CL 103 mmol/L (98-107); SODIUM,NA 140 mmol/L (136-145)
[2021-10-22] MEDS ORDERED: Acetaminophen 325 MG Tab PO PRN (23:12)
[2021-10-22] MEDS ORDERED: Aluminum Hydroxide/Magnesium Hydroxide/Simethicone Susp 30 ML Cup PO PRN (23:36)
[2021-10-22] MEDS ORDERED: Glucagon,Human Recombinant 1 MG Vial IM PRN ×2 (23:42→23:48)
[2021-10-22] MEDS ORDERED: Polyethylene Glycol 3350 Powder 17 GM Packet PO PRN (23:42)
[2021-10-22] MEDS ORDERED: 50% Dextrose in Water 50 ML Syringe IVPUSH PRN ×2 (23:42→23:48)
[2021-10-22] MEDS ORDERED: Omeprazole 20 MG Cap.CR PO PRN (23:42)
[2021-10-23] MEDS: Timolol Maleate 0.5% Ophth Soln 5 ML Bottle EYELF SCH ×3 (00:23→17:58)
[2021-10-23] MEDS ORDERED: oxyCODONE 5 MG Tab ONE (01:07)
[2021-10-23] MEDS: oxyCODONE 5 MG Tab PO PRN ×2 (01:09→22:15)
[2021-10-23] MEDS: Ondansetron 4 MG Tab.DIS PO PRN ×3 (05:46→18:52)
[2021-10-23 07:57] LABS: ANION GAP 9.4 meq/L (7-15)
[2021-10-23] MEDS: Insulin Lispro 100 Units/ML 3 ML Vial SUBCUT SCH ×4 (08:52→20:13)
[2021-10-23] MEDS: Spironolactone 25 MG Tab PO SCH (08:54)
[2021-10-23] MEDS: amLODIPine 5 MG Tab PO SCH (08:54)
[2021-10-23] MEDS: Levothyroxine 25 MCG Tab PO SCH (08:54)
[2021-10-23] MEDS: Citalopram 20 MG Tab PO SCH (08:55)
[2021-10-23] MEDS: Cyanocobalamin (Vitamin B12) 1,000 MCG Tab PO SCH (08:55)
[2021-10-23] MEDS: Clopidogrel 75 MG Tab PO SCH (08:55)
[2021-10-23] MEDS: Isosorbide Mononitrate 30 MG Tab.ER PO SCH (08:55)
[2021-10-23] MEDS: Apixaban 5 MG Tab PO SCH ×2 (08:55→17:54)
[2021-10-23] MEDS: Ferrous Sulfate 325 MG Tab PO SCH ×2 (08:55→17:54)
[2021-10-23] MEDS: Carvedilol 6.25 MG Tab PO SCH ×2 (08:56→17:54)
[2021-10-23] MEDS: Bumetanide 1 MG Tab PO SCH ×2 (08:56→11:44)
[2021-10-23] MEDS: Diclofenac Sodium 1% Gel 100 GM Tube TOP SCH ×4 (08:57→19:26)
[2021-10-23] MEDS: Polyvinyl Alcohol 1.4% Ophth Soln 15 ML Bottle EYEBOTH PRN ×2 (09:11→17:59)
[2021-10-23] MEDS: LEVOCARNITINE 1 GM/10 ML PO SCH (09:20)
[2021-10-23] MEDS: cefTRIAXone 1 GM in Sodium Chloride 0.9% 100 ML IV SCH (10:32)
[2021-10-23] MEDS: Sodium Chloride 0.9% 10 ML Syringe FLUSH PRN (10:33)
[2021-10-23] MEDS ORDERED: ClonazePAM 0.5 MG Tab PO SCH (18:59)
[2021-10-23] MEDS: Pregabalin 25 MG Cap PO SCH (19:23)
[2021-10-23] MEDS: busPIRone 15 MG Tab PO SCH (19:23)
[2021-10-23] MEDS: ClonazePAM 0.5 MG Tab PO SCH (19:23)
[2021-10-23] MEDS: atorvaSTATin 40 MG Tab PO SCH (19:23)
[2021-10-23] MEDS: QUEtiapine 100 MG Tab PO SCH (19:24)
[2021-10-23] MEDS: Latanoprost 0.005% Ophth Soln 2.5 ML Bottle EYELF SCH (20:13)
[2021-10-23] MEDS: Insulin Glarg,Human.Rec.Analog 100 Unit/ML SUBCUT SCH (20:14)
[2021-10-24] MEDS: Insulin Lispro 100 Units/ML 3 ML Vial SUBCUT SCH ×4 (07:47→20:10)
[2021-10-24] MEDS: Spironolactone 25 MG Tab PO SCH (07:48)
[2021-10-24] MEDS: Pregabalin 25 MG Cap PO SCH ×3 (07:48→20:05)
[2021-10-24] MEDS: busPIRone 15 MG Tab PO SCH ×2 (07:49→20:06)
[2021-10-24] MEDS: Bumetanide 1 MG Tab PO SCH ×2 (07:49→11:37)
[2021-10-24] MEDS: Isosorbide Mononitrate 30 MG Tab.ER PO SCH (07:50)
[2021-10-24] MEDS: Apixaban 5 MG Tab PO SCH ×2 (07:51→17:13)
[2021-10-24] MEDS: Citalopram 20 MG Tab PO SCH (07:51)
[2021-10-24] MEDS: amLODIPine 5 MG Tab PO SCH (07:51)
[2021-10-24] MEDS: Ferrous Sulfate 325 MG Tab PO SCH ×2 (07:51→17:12)
[2021-10-24] MEDS: Carvedilol 6.25 MG Tab PO SCH ×2 (07:52→17:13)
[2021-10-24] MEDS: QUEtiapine 25 MG Tab PO SCH (07:52)
[2021-10-24] MEDS: Clopidogrel 75 MG Tab PO SCH (07:53)
[2021-10-24] MEDS: Levothyroxine 25 MCG Tab PO SCH (07:53)
[2021-10-24] MEDS: Cyanocobalamin (Vitamin B12) 1,000 MCG Tab PO SCH (07:53)
[2021-10-24] MEDS: LEVOCARNITINE 1 GM/10 ML PO SCH (07:54)
[2021-10-24] MEDS: Timolol Maleate 0.5% Ophth Soln 5 ML Bottle EYELF SCH ×2 (07:56→17:17)
[2021-10-24] MEDS: Diclofenac Sodium 1% Gel 100 GM Tube TOP SCH ×4 (07:58→20:07)
[2021-10-24 08:24] LABS: ANION GAP 8.3 meq/L (7-15)
[2021-10-24] MEDS: cefTRIAXone 1 GM in Sodium Chloride 0.9% 100 ML IV SCH (09:55)
[2021-10-24] MEDS: ClonazePAM 0.5 MG Tab PO SCH (17:14)
[2021-10-24] MEDS: QUEtiapine 100 MG Tab PO SCH (20:06)
[2021-10-24] MEDS: atorvaSTATin 40 MG Tab PO SCH (20:06)
[2021-10-24] MEDS: Latanoprost 0.005% Ophth Soln 2.5 ML Bottle EYELF SCH (20:08)
[2021-10-24] MEDS: Insulin Glarg,Human.Rec.Analog 100 Unit/ML SUBCUT SCH (20:12)
[2021-10-24] MEDS: oxyCODONE 5 MG Tab PO PRN (22:19)
[2021-10-25] MEDS: Insulin Lispro 100 Units/ML 3 ML Vial SUBCUT SCH ×2 (07:51→11:25)
[2021-10-25] MEDS: Bumetanide 1 MG Tab PO SCH ×2 (07:54→11:32)
[2021-10-25] MEDS: amLODIPine 5 MG Tab PO SCH (07:54)
[2021-10-25 07:55] LABS: ANION GAP 9.3 meq/L (7-15)
[2021-10-25] MEDS: Cyanocobalamin (Vitamin B12) 1,000 MCG Tab PO SCH (07:55)
[2021-10-25] MEDS: busPIRone 15 MG Tab PO SCH (07:55)
[2021-10-25] MEDS: Isosorbide Mononitrate 30 MG Tab.ER PO SCH (07:55)
[2021-10-25] MEDS: Carvedilol 6.25 MG Tab PO SCH (07:56)
[2021-10-25] MEDS: Clopidogrel 75 MG Tab PO SCH (07:56)
[2021-10-25] MEDS: Spironolactone 25 MG Tab PO SCH (07:57)
[2021-10-25] MEDS: Apixaban 5 MG Tab PO SCH (07:57)
[2021-10-25] MEDS: Pregabalin 25 MG Cap PO SCH (07:58)
[2021-10-25] MEDS: Citalopram 20 MG Tab PO SCH (07:58)
[2021-10-25] MEDS: QUEtiapine 25 MG Tab PO SCH (07:58)
[2021-10-25] MEDS: Ferrous Sulfate 325 MG Tab PO SCH (07:58)
[2021-10-25] MEDS: Levothyroxine 25 MCG Tab PO SCH (07:59)
[2021-10-25] MEDS: LEVOCARNITINE 1 GM/10 ML PO SCH (07:59)
[2021-10-25] MEDS: Timolol Maleate 0.5% Ophth Soln 5 ML Bottle EYELF SCH (08:01)
[2021-10-25] MEDS: Diclofenac Sodium 1% Gel 100 GM Tube TOP SCH ×2 (08:02→11:27)
[2021-10-25] MEDS: cefTRIAXone 1 GM in Sodium Chloride 0.9% 100 ML IV SCH (10:06)
== END 2021-10-25 13:30 | DRG 871 ==
LOC: LL.ED 19:58 → LL.MS 22:56
PROVIDERS: ADMIT Hospitalist
DX: A41.51 Sepsis due to Escherichia coli [E. coli] (principal); G93.41 Metabolic encephalopathy; I50.43 Acute on chronic combined systolic (congestive) and diastolic (congestive) heart failure; J96.01 Acute respiratory failure with hypoxia; I50.30 Unspecified diastolic (congestive) heart failure; I13.0 Hypertensive heart and chronic kidney disease with heart failure and stage 1 through stage 4 chronic kidney disease, or unspecified chronic kidney disease; N39.0 Urinary tract infection, site not specified; J30.9 Allergic rhinitis, unspecified; H40.9 Unspecified glaucoma; E11.22 Type 2 diabetes mellitus with diabetic chronic kidney disease; I73.9 Peripheral vascular disease, unspecified; R65.20 Severe sepsis without septic shock; J44.9 Chronic obstructive pulmonary disease, unspecified; F31.9 Bipolar disorder, unspecified; E78.00 Pure hypercholesterolemia, unspecified; K21.9 Gastro-esophageal reflux disease without esophagitis; F41.9 Anxiety disorder, unspecified; F32.A Depression, unspecified; Z66 Do not resuscitate; N18.30 Chronic kidney disease, stage 3 unspecified; E11.40 Type 2 diabetes mellitus with diabetic neuropathy, unspecified; D63.1 Anemia in chronic kidney disease; E66.9 Obesity, unspecified; E03.9 Hypothyroidism, unspecified; Z79.4 Long term (current) use of insulin; G89.4 Chronic pain syndrome; F43.10 Post-traumatic stress disorder, unspecified; E78.2 Mixed hyperlipidemia; K59.09 Other constipation; Z89.511 Acquired absence of right leg below knee; Z88.1 Allergy status to other antibiotic agents; Z88.2 Allergy status to sulfonamides; Z88.8 Allergy status to other drugs, medicaments and biological substances; Z79.01 Long term (current) use of anticoagulants; Z79.02 Long term (current) use of antithrombotics/antiplatelets; Z79.890 Hormone replacement therapy; Z79.899 Other long term (current) drug therapy; Z68.30 Body mass index [BMI] 30.0-30.9, adult; Z86.73 Personal history of transient ischemic attack (TIA), and cerebral infarction without residual deficits; E86.0 Dehydration
CPT/HCPCS: 36415; 80053; 81001; 82947; 83605; 85025; 86140; 87040 ×2; 87086; 87088 ×2; 87186 ×2; 94761; J2543; J7120; 80048; 85027; 96365; 99232; 99233; 99285-25; A9270-GY; J0696; J1815-GY

== ENCOUNTER 2022-01-22 12:09 | Emergency (ER) | payer MEDICARE, MEDICAID ==
[2022-01-22 13:28] LABS: CHLORIDE,CL 99 mmol/L (98-107); SODIUM,NA 140 mmol/L (136-145)
== END 2022-01-22 14:00 ==
LOC: LL.ED 12:09
DX: L03.116 Cellulitis of left lower limb (principal); J44.9 Chronic obstructive pulmonary disease, unspecified; E11.22 Type 2 diabetes mellitus with diabetic chronic kidney disease; I13.0 Hypertensive heart and chronic kidney disease with heart failure and stage 1 through stage 4 chronic kidney disease, or unspecified chronic kidney disease; N18.30 Chronic kidney disease, stage 3 unspecified; I50.9 Heart failure, unspecified; E03.9 Hypothyroidism, unspecified; K21.9 Gastro-esophageal reflux disease without esophagitis; E66.9 Obesity, unspecified; Z68.30 Body mass index [BMI] 30.0-30.9, adult; Z88.0 Allergy status to penicillin; Z88.1 Allergy status to other antibiotic agents; Z88.2 Allergy status to sulfonamides; Z91.041 Radiographic dye allergy status; Z88.8 Allergy status to other drugs, medicaments and biological substances; Z79.4 Long term (current) use of insulin; Z79.02 Long term (current) use of antithrombotics/antiplatelets; Z79.01 Long term (current) use of anticoagulants; Z79.899 Other long term (current) drug therapy; Z87.891 Personal history of nicotine dependence
CPT/HCPCS: 36415; 73610-LT; 80053; 85025; 99283-25; 99284

== ENCOUNTER 2022-07-05 06:41 | Emergency (ER) | payer MEDICARE, MEDICAID ==
[2022-07-05] MEDS ORDERED: Pantoprazole 40 MG Vial IVPUSH ONE (06:47)
[2022-07-05 07:44] LABS: CHLORIDE,CL 102 mmol/L (98-107); SODIUM,NA 140 mmol/L (136-145)
[2022-07-05 07:47] LABS: ANION GAP 12.3 meq/L (7-15); ESTIMATED GFR 37 mL/min (>=60)
[2022-07-05] MEDS ORDERED: Ondansetron 4 MG/2 ML SDV IVPUSH ONE (08:11)
[2022-07-05] MEDS: Sodium Chloride 0.9% 10 ML Syringe FLUSH PRN ×2 (08:19→08:42)
[2022-07-05] MEDS ORDERED: Potassium Chloride Riders 10 MEQ in Premix Bag 1 BAG IV ONE ×2 (08:31→09:52)
[2022-07-05] MEDS ORDERED: Sodium Chloride 0.9% 1,000 ML IV ONE (08:32)
[2022-07-05] MEDS ORDERED: Promethazine 25 MG/ML SDV IM ONE (09:14)
[2022-07-05] MEDS ORDERED: Metoclopramide 10 MG/2 ML SDV IVPUSH ONE (09:58)
== END 2022-07-05 12:40 ==
LOC: LL.ED 06:41
DX: K27.9 Peptic ulcer, site unspecified, unspecified as acute or chronic, without hemorrhage or perforation (principal); I11.0 Hypertensive heart disease with heart failure; I50.9 Heart failure, unspecified; J44.9 Chronic obstructive pulmonary disease, unspecified; R11.0 Nausea; E11.9 Type 2 diabetes mellitus without complications; Z88.0 Allergy status to penicillin; Z88.8 Allergy status to other drugs, medicaments and biological substances; Z88.1 Allergy status to other antibiotic agents; Z88.6 Allergy status to analgesic agent; Z91.041 Radiographic dye allergy status; Z88.2 Allergy status to sulfonamides; Z91.018 Allergy to other foods; Z79.899 Other long term (current) drug therapy; Z79.4 Long term (current) use of insulin; Z87.891 Personal history of nicotine dependence
CPT/HCPCS: 36415; 80053; 82272; 83605; 85027; 85610; 86850; 86900; 86901; 96361; 96365; 96372; 96375; 99284; C9113; J2405; J2550; J3480; J3490; J7030

== ENCOUNTER 2023-04-29 14:58 | Emergency (ER) | payer MEDICARE, MEDICAID ==
[2023-04-29 15:18] LABS: BASOPHILS ABSOLUTE AUTO 0.03 K/uL (0.00-0.20); BASOPHILS PERCENT AUTO 0.3 % (0.0-2.0); EOSINOPHILS ABSOLUTE AUTO 0.47 K/uL (0.00-0.50); EOSINOPHILS PERCENT AUTO 3.9 % (0.0-5.0); LYMPHOCYTES ABSOLUTE AUTO 0.87 K/uL (0.50-3.50); LYMPHOCYTES PERCENT AUTO 7.3 % (10.0-50.0); MEAN CORPUSCULAR HEMOGLOBIN 30.5 pg (28.2-33.3); MEAN CORPUSCULAR HGB CONC 28.6 g/dL (31.7-36.0); MEAN CORPUSCULAR VOLUME 106.6 fL (84.0-98.0); MONOCYTES ABSOLUTE AUTO 1.08 K/uL (0.00-1.00); MONOCYTES PERCENT AUTO 9.1 % (2.0-14.0); NEUTROPHILS ABSOLUTE AUTO 9.48 K/uL (1.40-7.00); NEUTROPHILS PERCENT AUTO 79.4 % (45.0-80.0); PLATELET COUNT,PLT 166 K/uL (150-350); RED BLOOD CELL COUNT 2.26 M/uL (3.77-5.09); RED CELL DISTRIBUTION WIDTH 21.1 % (11.2-14.1); WHITE BLOOD CELL COUNT,WBC 11.9 K/uL (4.0-10.2)
[2023-04-29] MEDS: Pantoprazole 40 MG Vial IVPUSH ONE (15:19)
[2023-04-29] MEDS: Sodium Chloride 0.9% 10 ML Syringe FLUSH PRN (15:20)
[2023-04-29 15:25] LABS: HEMATOCRIT 24.1 % (34.0-46.0); HEMOGLOBIN 6.9 g/dL (11.7-15.5)
[2023-04-29 15:38] LABS: ALANINE AMINOTRANSFERASE,ALT 8 U/L (12-78); ALBUMIN 2.8 g/dL (3.4-5.0); ALKALINE PHOSPHATASE 102 IU/L (46-116); ASPARTATE AMNIOTRANSFERASE,AST 7 U/L (15-37); BILIRUBIN TOTAL 0.2 mg/dL (0.2-1.0); BLOOD UREA NITROGEN,BUN 80 mg/dL (7-18); CALCIUM 7.8 mg/dL (8.5-10.1); CARBON DIOXIDE,CO2 28.8 mmol/L (21.0-32.0); CHLORIDE,CL 107 mmol/L (98-107); CREATININE 2.35 mg/dL (0.51-1.17); GLUCOSE RANDOM 139 mg/dL (70-99); POTASSIUM,K 3.6 mmol/L (3.5-5.1); PROTEIN TOTAL,TP 6.5 g/dL (6.4-8.2); SODIUM,NA 146 mmol/L (136-145)
[2023-04-29 15:39] LABS: ANION GAP 13.8 meq/L (7-15); ESTIMATED GFR 24 mL/min (>=60)
[2023-04-29] MEDS: Sodium Chloride 0.9% 500 ML IV SCH (15:46)
[2023-04-29] MEDS ORDERED: Sodium Chloride 0.9% 250 ML IV SCH (16:00)
[2023-04-29] MEDS ORDERED: QUEtiapine 100 MG Tab PO SCH (20:00)
[2023-04-29] MEDS: busPIRone 15 MG Tab PO ONE (20:24)
[2023-04-29] MEDS: Bumetanide 1 MG Tab PO ONE (20:24)
[2023-04-29] MEDS: Pregabalin 25 MG Cap PO ONE (20:25)
[2023-04-29] MEDS: oxyCODONE 5 MG Tab PO ONE (20:25)
[2023-04-29] MEDS: Metoclopramide 10 MG Tab PO ONE (20:26)
[2023-04-30] MEDS: Sodium Chloride 0.45% 1,000 ML IV SCH (04:15)
[2023-04-30] MEDS ORDERED: Levothyroxine 75 MCG Tab PO ONE (07:00)
[2023-04-30] MEDS ORDERED: Venlafaxine 75 MG Cap.ER PO SCH (08:00)
[2023-04-30] MEDS ORDERED: Bumetanide 1 MG Tab PO SCH (08:00)
[2023-04-30] MEDS ORDERED: Pregabalin 25 MG Cap PO SCH (08:00)
[2023-04-30] MEDS ORDERED: QUEtiapine 100 MG Tab PO ONE (08:00)
[2023-04-30] MEDS ORDERED: QUEtiapine 25 MG Tab PO ONE (08:00)
[2023-04-30] MEDS ORDERED: Metoclopramide 10 MG Tab PO ONE (08:00)
[2023-04-30] MEDS ORDERED: Pantoprazole 40 MG Vial IVPUSH ONE (08:00)
[2023-04-30] MEDS ORDERED: Venlafaxine 37.5 MG Cap.ER PO SCH (08:00)
== END 2023-04-30 07:20 ==
LOC: LL.ED 14:58
DX: K92.2 Gastrointestinal hemorrhage, unspecified (principal); J44.9 Chronic obstructive pulmonary disease, unspecified; I11.0 Hypertensive heart disease with heart failure; E11.22 Type 2 diabetes mellitus with diabetic chronic kidney disease; N18.30 Chronic kidney disease, stage 3 unspecified; I50.9 Heart failure, unspecified; K21.9 Gastro-esophageal reflux disease without esophagitis; Z88.0 Allergy status to penicillin; Z88.1 Allergy status to other antibiotic agents; Z91.018 Allergy to other foods; Z91.041 Radiographic dye allergy status; Z88.8 Allergy status to other drugs, medicaments and biological substances; Z88.2 Allergy status to sulfonamides; Z79.01 Long term (current) use of anticoagulants; Z79.02 Long term (current) use of antithrombotics/antiplatelets; Z79.899 Other long term (current) drug therapy; Z79.4 Long term (current) use of insulin
CPT/HCPCS: 36415; 36430; 80053; 82272; 82947; 85025; 86850; 86900; 86901; 86920; 86922; 96361; 96374; 99285; A9270; C9113; J7030; J7040; P9016; 99284; J3490